=== PATIENT | male | born 1935 | race Caucasian/White ===

== ENCOUNTER 2016-09-11 13:38 | Inpatient (IN) | payer MEDICARE, OTHER ==
[~2016-09-11] VITALS: Ht 177.8 cm; Wt 91.6 kg
[~2016-09-11 13:38] MED LIST: ENOX100P SQ; LACT20SO4 PO; LANSO30 NG; LEVE500S TUBE; RIFA550 PO; WARF5 PO
[2016-09-11 13:44] VITALS: BP 145/70; PULSE 67; RESP 17; TEMP 98.2; O2SAT 98
[2016-09-11 14:04] LABS: AUTOMATED NEUTROPHIL # 4.5 TH/MM3 (1.8-7.7); BASOPHIL % 0.6 % (0.0-2.0); EOSINOPHIL # 0.1 TH/MM3 (0-0.4); EOSINOPHIL % 1.7 % (0.0-4.0); HEMATOCRIT 36.4 % (39.0-51.0); HEMO FLAGS DIFF FINAL; LYMPH % 27.4 % (9.0-44.0); MEAN CELL VOLUME 88.1 FL (80.0-100.0); MEAN CORPUSCULAR HEMOGLOBIN 29.1 PG (27.0-34.0); MEAN CORPUSCULAR HGB CONC 33.1 % (32.0-36.0); MONO % 8.1 % (0.0-8.0); NEUT % 62.2 % (16.0-70.0); PLATELET COUNT 228 TH/MM3 (150-450); RED BLOOD COUNT 4.13 MIL/MM3 (4.50-5.90); RED CELL DISTRIBUTION WIDTH 15.2 % (11.6-17.2); WHITE BLOOD COUNT 7.2 TH/MM3 (4.0-11.0)
[2016-09-11 14:21] LABS: ALT (GPT) 15 U/L (12-78); ANION GAP 6 MEQ/L (5-15); AST (GOT) 16 U/L (15-37); BICARBONATE 26.7 MEQ/L (21.0-32.0); BLOOD UREA NITROGEN 21 MG/DL (7-18); CHLORIDE 110 MEQ/L (98-107); GLOMERULAR FILTRATION RATE 57 ML/MIN (>89); POTASSIUM 4.2 MEQ/L (3.5-5.1); SODIUM (NA) 143 MEQ/L (136-145)
[2016-09-11 14:23] LABS: ALKALINE PHOSPHATASE 51 U/L (45-117); TOTAL BILIRUBIN ADULT 0.4 MG/DL (0.2-1.0)
[2016-09-11] MEDS ORDERED: LITH300C2 PO (14:23)
[2016-09-11 14:34] LABS: AMPHETAMINE, URINE NEG (NEG); BARBITURATES, URINE NEG (NEG); COCAINE, URINE NEG (NEG)
--- NOTE | 2016-09-11 14:48 | PD ---
HPI Chief Complaint: Psychiatric Symptoms Time Seen by Provider: 14:44 Travel History International Travel<30 days: No Contact w/Intl Traveler<30days: No Traveled to known affect area: No History of Present Illness HPI 79-year-old male that presents to the ED for evaluation of psychiatric illness. Patient was Catrachita acted by his facility secondary to noncompliance. Patient completely denies this. He does have a history of bipolar disorder. Apparently patient defecated on himself and wouldn't let staff take care of him so he was Domínguez acted. He does take lithium. Per Domínguez acted the believe the patient is manic. He denies this. She states been compliant with his medications. He denies any suicidal or homicidal ideation. No drugs or alcohol. No chest pain or shortness of breath. No pain of any kind. He does have a history of bipolar disorder as well as dementia per medical records. He does tell me that he is being Domínguez acted in the past. PFSH Past Medical History Autoimmune Disease: No Bipolar Disorder: Yes Anxiety: Yes Depression: No Cancer: No Cardiovascular Problems: No Diabetes: No Diminished Hearing: No Endocrine: No Genitourinary: No Immune Disorder: No Musculoskeletal: No Neurologic: No Psychiatric: Yes Reproductive: No Respiratory: No Immunizations Current: Yes Thyroid Disease: No Tetanus Vaccination: > 5 Years Past Surgical History Abdominal Surgery: No Cardiac Surgery: No Ear Surgery: No Endocrine Surgery: No Eye Surgery: No Genitourinary Surgery: No Gynecologic Surgery: No Oral Surgery: No Thoracic Surgery: No Other Surgery: Yes (back sx for mrsa) Social History Alcohol Use: Yes (OCASSIONALLY) Tobacco Use: Yes Substance Use: No Allergies-Medications (Allergen,Severity, Reaction): Coded Allergies: *MDRO Multi-Drug Resistant Organism (Verified Allergy, Severe, 09/11/16) Morphine (Verified Allergy, Severe, Anaphylaxis, 09/11/16) Reported Meds & Prescriptions Reported Meds & Active Scripts Active Reported Galva Carbonate 300 Mg Cap 300 Mg PO DAILY Review of Systems Except as stated in HPI: all other systems reviewed are Neg Physical Exam Narrative GENERAL: SKIN: Warm and dry. HEAD: Atraumatic. Normocephalic. EYES: Pupils equal and round 4 mm reactive to light and accommodation. No scleral icterus. No injection or drainage. ENT: No nasal bleeding or discharge. Mucous membranes pink and moist. Tongue is midline. No uvula deviation. NECK: Trachea midline. No JVD. CARDIOVASCULAR: Regular rate and rhythm. RESPIRATORY: No accessory muscle use. Clear to auscultation. Breath sounds equal bilaterally. GASTROINTESTINAL: Abdomen soft, non-tender, nondistended. Hepatic and splenic margins not palpable. MUSCULOSKELETAL: Extremities without clubbing, cyanosis, or edema. No obvious deformities. Full range of motion of the upper and lower extremities bilaterally. 2+ pulses bilaterally. NEUROLOGICAL: Awake and alert. No obvious cranial nerve deficits. Motor grossly within normal limits. Five out of 5 muscle strength in the arms and legs. Normal speech. PSYCHIATRIC: Appears to be appropriate mood and affect; insight and judgment normal. Data Data Last Documented VS Vital Signs Date Time Temp Pulse Resp B/P Pulse Ox O2 Delivery O2 Flow Rate FiO2 09/11/16 13:45 86 17 09/11/16 13:44 98.2 145/70 98 Orders Complete Blood Count With Diff (09/11/16 13:46) Comprehensive Metabolic Panel (09/11/16 13:46) Drug Screen, Random Urine (09/11/16 13:46) Alcohol (Ethanol) (09/11/16 13:46) Psych Screen (09/11/16 13:46) Galva (Li) (09/11/16 14:01) ^ Sitter (09/11/16 14:09) Labs Laboratory Tests Test 09/11/16 09/11/16 13:54 14:00 White Blood Count 7.2 TH/MM3 Red Blood Count 4.13 MIL/MM3 Hemoglobin 12.1 GM/DL Hematocrit 36.4 % Mean Corpuscular Volume 88.1 FL Mean Corpuscular Hemoglobin 29.1 PG Mean Corpuscular Hemoglobin 33.1 % Concent Red Cell Distribution Width 15.2 % Platelet Count 228 TH/MM3 Mean Platelet Volume 8.0 FL Neutrophils (%) (Auto) 62.2 % Lymphocytes (%) (Auto) 27.4 % Monocytes (%) (Auto) 8.1 % Eosinophils (%) (Auto) 1.7 % Basophils (%) (Auto) 0.6 % Neutrophils # (Auto) 4.5 TH/MM3 Lymphocytes # (Auto) 2.0 TH/MM3 Monocytes # (Auto) 0.6 TH/MM3 Eosinophils # (Auto) 0.1 TH/MM3 Basophils # (Auto) 0.0 TH/MM3 CBC Comment DIFF FINAL Differential Comment Sodium Level 143 MEQ/L Potassium Level 4.2 MEQ/L Chloride Level 110 MEQ/L Carbon Dioxide Level 26.7 MEQ/L Anion Gap 6 MEQ/L Blood Urea Nitrogen 21 MG/DL Creatinine 1.22 MG/DL Estimat Glomerular Filtration 57 ML/MIN Rate Random Glucose 123 MG/DL Calcium Level 8.7 MG/DL Total Bilirubin 0.4 MG/DL Aspartate Amino Transf 16 U/L (AST/SGOT) Alanine Aminotransferase 15 U/L (ALT/SGPT) Alkaline Phosphatase 51 U/L Total Protein 5.9 GM/DL Albumin 3.3 GM/DL Ethyl Alcohol Level LESS THAN 3 MG/DL Urine Opiates Screen NEG Urine Barbiturates Screen NEG Urine Amphetamines Screen NEG Urine Benzodiazepines Screen NEG Urine Cocaine Screen NEG Urine Cannabinoids Screen NEG MDM Medical Decision Making Medical Screen Exam Complete: Yes Emergency Medical Condition: Yes Medical Record Reviewed: Yes Interpretation(s) CBC & BMP Diagram 09/11/16 13:54 tox negative Differential Diagnosis Depression versus suicidal ideation versus anxiety versus adjustment disorder versus mood disorder versus bipolar disorder versus schizophrenia versus paranoid disorder versus psychosis versus substance abuse versus alcohol abuse versus alcohol induced psychosis versus homicidality addition versus cutting versus personality disorder Narrative Course 80-year-old male that presents to the ED for evaluation of psych. Patient was properly examined and was found to have signs and symptoms consistent appears to be psychiatric illness. No sign of acute medical distress. Labs will be drawn. Patient will be medically cleared. Okay to be seen by psych. Mental health screening was discussed with the patient. Diagnosis Primary Impression: Bipolar affective disorder, manic, in partial or remission Frandy Aguila Sep 11, 2016 14:48
[2016-09-11 16:34] VITALS: BP 169/77; PULSE 64; RESP 20; TEMP 92.8; O2SAT 96
[2016-09-11 18:29] VITALS: BP 176/75; PULSE 60; RESP 18; O2SAT 99
[2016-09-11] MEDS ORDERED: BENZTROPINE MESYLATE 1 MG TAB PO PRN (20:45)
[2016-09-11] MEDS ORDERED: diphenhydrAMINE HCL 50 MG CAP PO PRN (20:45)
[2016-09-11] MEDS ORDERED: ACETAMINOPHEN 325 MG TAB PO PRN (20:45)
[2016-09-11] MEDS ORDERED: LORazepam 2 MG/ML VIAL IM PRN (20:45)
[2016-09-11] MEDS ORDERED: BENZTROPINE MESYLATE 2 MG/2 ML VIAL IM PRN (20:45)
[2016-09-11] MEDS ORDERED: MAGNESIUM HYDROXIDE SUSP 30 ML CUP PO PRN (20:45)
[2016-09-11] MEDS ORDERED: ALUMINUM/MAGNESIUM/SIMETH 30 ML CUP PO PRN (20:45)
[2016-09-11 22:21] VITALS: BP 182/88; PULSE 53; RESP 20; O2SAT 99
[2016-09-12 03:04] VITALS: BP 176/84; PULSE 50; RESP 19; TEMP 90.2; O2SAT 96
[2016-09-12 06:38] VITALS: BP 184/81; PULSE 55; RESP 18; TEMP 97.8; O2SAT 97
[2016-09-12 07:40] LABS: AUTOMATED NEUTROPHIL # 3.6 TH/MM3 (1.8-7.7); BASOPHIL % 0.6 % (0.0-2.0); EOSINOPHIL # 0.1 TH/MM3 (0-0.4); EOSINOPHIL % 2.4 % (0.0-4.0); HEMATOCRIT 39.1 % (39.0-51.0); HEMO FLAGS DIFF FINAL; LYMPH % 29.7 % (9.0-44.0); LYMPHOCYTE # 1.8 TH/MM3 (1.0-4.8); MEAN CORPUSCULAR HEMOGLOBIN 29.4 PG (27.0-34.0); MEAN CORPUSCULAR HGB CONC 33.8 % (32.0-36.0); MONO % 8.5 % (0.0-8.0); NEUT % 58.8 % (16.0-70.0); PLATELET COUNT 234 TH/MM3 (150-450); RED CELL DISTRIBUTION WIDTH 15.2 % (11.6-17.2)
[2016-09-12 07:57] LABS: ANION GAP 8 MEQ/L (5-15); BICARBONATE 24.9 MEQ/L (21.0-32.0); BLOOD UREA NITROGEN 21 MG/DL (7-18); CHLORIDE 108 MEQ/L (98-107); GLOMERULAR FILTRATION RATE 64 ML/MIN (>89); HDL CHOLESTEROL 64.7 MG/DL (40.0-60.0); LDL CHOLESTEROL 51 MG/DL (0-99); POTASSIUM 4.3 MEQ/L (3.5-5.1); SODIUM (NA) 141 MEQ/L (136-145)
[2016-09-12] MEDS: REMOVE OLD PATCH T-DERMAL SCH (09:00)
[2016-09-12] MEDS: NICOTINE 21 MG/24 HR PATCH T-DERMAL SCH (09:00)
--- NOTE | 2016-09-12 10:32 | HHI.HP ---
History of Present Illness Service MEDICAL CONSULTATION Primary Care Physician Rosibel YODER M.D. Admission Diagnosis Bipolar Disorder Diagnoses: (1) History of bipolar disorder (2) Major neurocognitive disorder (3) Delirium due to another medical condition (4) Dementia (5) Dyspnea (6) Encephalopathy (7) Pain (8) Hypernatremia (9) Acute kidney failure (10) Rhabdomyolysis (11) Bipolar affective disorder, manic, in partial or remission History of Present Illness 80 Y CM. OUTPATIENT OF [facility], LIVES AT [place]. RECENTLY MOVED INTO THE [facility], NOT THE [facility]. PT HAS BEEN NONCOMPLIANT W MEDS. APPARENTLY WAS TAKING LITHIUM, UNFORTUNATELY RECENTLY HAS BEEN MANIC AND DEFECATING IN THE HALLWAYS, URINATING IN PUBLIC, GRABBING SOME OF THE RECORDS SECTION SUPERVISOR IN THE DINING ROOM. PT STARTED PUSHING SOME ELDER RESIDENTS AND POLICE WERE CALLED. THEY REFUSED TO BENNETT ACT HIM. POLICE CALLED AGAIN YESTERDAY AND PT BEHAVIORS WERE EVIDENT, AND HE AGREED TO GO TO [facility] FOR EVALUATION. PT SEEN IN PSYCH UNIT. DISCUSSED WITH DR YORK AND HIS STAFF. PT STATE HE SLEPT WELL, HE UNDERSTANDS HE IS NOT CONFUSED YET IS INTERESTED IN GETTING HELP. HE PREFERS TO OFFER NO FURTHER INFO HE IS BECOMING AGITATED. Review of Systems ROS Limitations: Clinical Condition, Altered Mental Status, Uncooperative, Poor Historian Other -14 POT ROS EXCEPT ABOVE Past Family Social History Allergies: Coded Allergies: *MDRO Multi-Drug Resistant Organism (Verified Allergy, Severe, 09/11/16) Morphine (Verified Allergy, Severe, Anaphylaxis, 09/11/16) Physical Exam Vital Signs Vital Signs Date Time Temp Pulse Resp B/P Pulse Ox O2 Delivery O2 Flow Rate FiO2 09/12/16 06:38 97.8 55 18 184/81 97 09/12/16 03:04 90.2 50 19 176/84 96 09/11/16 22:21 53 20 182/88 99 Room Air 09/11/16 18:29 60 18 176/75 99 Room Air 09/11/16 16:34 92.8 64 20 169/77 96 Room Air 09/11/16 13:45 86 17 09/11/16 13:44 98.2 67 17 145/70 98 Physical Exam GENERAL: This is a well-nourished, well-developed patient, in no apparent distress. SKIN: No rashes, ecchymoses or lesions. Cool and dry. HEAD: Atraumatic. Normocephalic. No temporal or scalp tenderness. EYES: Pupils equal round and reactive. Extraocular motions intact. No scleral icterus. No injection or drainage. ENT: Nose without bleeding, purulent drainage or septal hematoma. Throat without erythema, tonsillar hypertrophy or exudate. Uvula midline. Airway patent. NECK: Trachea midline. No JVD or lymphadenopathy. Supple, nontender, no meningeal signs. CARDIOVASCULAR: Regular rate and rhythm without murmurs, gallops, or rubs. RESPIRATORY: Clear to auscultation. Breath sounds equal bilaterally. No wheezes , rales, or rhonchi. GASTROINTESTINAL: Abdomen soft, non-tender, nondistended. No hepato-splenomegaly , or palpable masses. No guarding. MUSCULOSKELETAL: Extremities without clubbing, cyanosis, or edema. No joint tenderness, effusion, or edema noted. No calf tenderness. Negative Homans sign bilaterally. NEUROLOGICAL: Awake and alert. Cranial nerves II through XII intact. Motor and sensory grossly within normal limits. Five out of 5 muscle strength in all muscle groups. Normal speech. Laboratory Laboratory Tests Test 09/11/16 09/11/16 09/11/16 09/12/16 13:54 14:00 19:17 06:18 White Blood Count 7.2 6.0 Red Blood Count 4.13 4.50 Hemoglobin 12.1 13.2 Hematocrit 36.4 39.1 Mean Corpuscular Volume 88.1 87.0 Mean Corpuscular Hemoglobin 29.1 29.4 Mean Corpuscular Hemoglobin 33.1 33.8 Concent Red Cell Distribution Width 15.2 15.2 Platelet Count 228 234 Mean Platelet Volume 8.0 8.3 Neutrophils (%) (Auto) 62.2 58.8 Lymphocytes (%) (Auto) 27.4 29.7 Monocytes (%) (Auto) 8.1 8.5 Eosinophils (%) (Auto) 1.7 2.4 Basophils (%) (Auto) 0.6 0.6 Neutrophils # (Auto) 4.5 3.6 Lymphocytes # (Auto) 2.0 1.8 Monocytes # (Auto) 0.6 0.5 Eosinophils # (Auto) 0.1 0.1 Basophils # (Auto) 0.0 0.0 CBC Comment DIFF FINAL DIFF FINAL Differential Comment Sodium Level 143 141 Potassium Level 4.2 4.3 Chloride Level 110 108 Carbon Dioxide Level 26.7 24.9 Anion Gap 6 8 Blood Urea Nitrogen 21 21 Creatinine 1.22 1.11 Estimat Glomerular Filtration 57 64 Rate Random Glucose 123 80 Calcium Level 8.7 8.9 Total Bilirubin 0.4 Aspartate Amino Transf 16 (AST/SGOT) Alanine Aminotransferase 15 (ALT/SGPT) Alkaline Phosphatase 51 Total Protein 5.9 Albumin 3.3 Ethyl Alcohol Level LESS THAN 3 Urine Opiates Screen NEG Urine Barbiturates Screen NEG Urine Amphetamines Screen NEG Urine Benzodiazepines Screen NEG Urine Cocaine Screen NEG Urine Cannabinoids Screen NEG Saunemin Level LESS THAN 0.1 Triglycerides Level 77 Cholesterol Level 131 LDL Cholesterol 51 HDL Cholesterol 64.7 Cholesterol/HDL Ratio 2.02 Result Diagram: 09/12/1661709/12/16617 Assessment and Plan Assessment and Plan DECOMPENSATED BIPOLAR URGENT HTN RI HYPERGLYCEMIA PLAN: START LISINOPRIL. PSYCH MEDS PER PSYCHIATRY. A1C BMP ONE WEEK WILL FOLLOW CLOSELY PT MEDICAL PROBLEMS. Jj Yoder MD Sep 12, 2016 10:32
[2016-09-12] MEDS ORDERED: ALUMINUM/MAGNESIUM/SIMETH 30 ML CUP PO PRN (11:00)
[2016-09-12] MEDS ORDERED: MAGNESIUM HYDROXIDE SUSP 30 ML CUP PO PRN (11:00)
--- NOTE | 2016-09-12 11:30 | HHI.HP ---
Provisional Diagnosis Admission Date Sep 11, 2016 at 20:38 [place] I. Bipolar 1 disorder most recent episode karri moderate f 31.12 Certification of Person's Competence To Provide Express and Informed Consent I have personally examined Malvin Sahu , a person being served at [facility] on, Sep 12, 2016 10:59. Express and informed consent means consent voluntarily given in writing, by a competent person, after sufficient explanation and disclosure of the subject matter involved to enable the person to make a knowing and willful decision without any element of force, fraud, deceit, duress, or other form of constraint or coercion. This person is 18 years of age or older, is not now known to be incompetent to consent to treatment with a guardian advocate, and does not have a health care surrogate or proxy currently making medical treatment decisions. I have found this person to be one of the following: [] Competent to provide express and informed consent, as defined above, for voluntary admission to this facility and is competent to provide express and informed consent for treatment. He/she has the consistent capacity to make well reasoned, willful, and knowing decisions concerning his or her medical or mental health treatment. The person fully and consistently understands the purpose of the admission for examination/placement and is fully capable of personally exercising all rights assured [place] [] Incompetent to provide express and informed consent to voluntary admission, and this is incompetent to provide express and informed consent to treatment. The person must be transferred to involuntary status and a petition for a guardian advocate filed with the Circuit Court. [x] Refusing to provide express and informed consent to voluntary admission but is competent to provide express and informed consent for treatment. The person must be discharged or transferred to involuntary status. Form shall be completed within 24 hours of a person's arrival at the receiving facility and filed in the clinical record of each person: 1. Admitted on a voluntary basis 2. Permitted to provide express and informed consent to his/her own treatment 3. Allowed to transfer from involuntary to voluntary status 4. Prior to permitting a person to consent to his or her own treatment after having been previously found incompetent to consent to treatment. History of Present Illness Capacity: Has Capacity (patient has capacity to participate in treatment) HPI Patient is a 80-year-old white male comes here under Domínguez act by the [place] [employer] dated 09/11/16 at 1251. stating Mr. Fields is currently living at [facility] in the independent living facility. He has not been taking his medications for the past couple of months. Mrs. Fields defecated on himself and refuses to shower. Mr. Fields was defecating in the shower and also the lunchroom area. Mrs. Madrigal is in a manic state according to staff member. Staff member believes that he is poor processing dodging Dr. Jeong appointments. Mr. Fields advised that he is not hospital and has been taking his medication. She Donnie son came to location after called by staff members and noted that his father was not in his right frame of mind and feeling that this type of behavior is because he is not probably taking his medication. Patient seen screened in the ED urine toxicology negative blood alcohol level negative, lithium level less than 0.1. Patient seen in his room with nurse Mayo present throughout session. Patient is a tall heavyset white male laying calmly in his bed. He is oriented to person place time and situation. He does acknowledge being bipolar. Does somewhat reluctantly acknowledge being somewhat "manic" he acknowledges prior manic states with elevated mood racing thoughts increased energy decreased need for sleep with poor behavior and impulsive behavior. At this time remains somewhat grandiose stating he continues to be employed for living and travels for living. He does deny alcohol or drugs related to this he denies any voices or visions with this of present entitlement grandiosity related to this. He does acknowledge prior hospitalization with this. Review of our EMR shows a hospitalization on through 09/20/14 visited [id number] with diagnosis psychosis, also visit through 10/23/14 diagnoses bipolar disorder [id number]. We did discuss medications it appears he has been on lithium in the past though none recently I've also talked with Dr. Jeong was his medical doctor at the facility states there is some concern with his family related to that medicine. The patient is and has 3 adult children 1 son who lives local. Denies any physical or sexual abuse states minimal alcohol abuse and denies other drug use. Also denies any mental health issues with his family of origin. States he has a bachelor's degree from [employer] and some advanced courses also. At this time the patient does meet criteria for involuntary psychiatric hospitalization on the Domínguez act I'll do first opinion requests second opinion. I feel the does have capacity to participate vagueness treatment. Will have as mentioned Dr. Jeong follow-up with him the started him on Seroquel 25 mg 3 times a day and and fight patient's son to the treatment team meeting on Thursday , 09/15/16 Review of Systems Constitutional: DENIES: Diaphoretic episodes, Fatigue, Fever, Weight gain, Weight loss, Chills, Dizziness, Change in appetite, Night Sweats Endocrine: DENIES: Heat/cold intolerance, Polydipsia, Polyuria, Polyphagia Eyes: DENIES: Blurred vision, Diplopia, Eye inflammation, Eye pain, Vision loss , Photosensitivity, Double Vision Ears, nose, mouth, throat: DENIES: Tinnitus, Hearing loss, Vertigo, Nasal discharge, Oral lesions, Throat pain, Hoarseness, Ear Pain, Running Nose, Epistaxis, Sinus Pain, Toothache, Odynophagia Respiratory: DENIES: Apneas, Cough, Snoring, Wheezing, Hemoptysis, Sputum production, Shortness of breath Cardiovascular: DENIES: Chest pain, Palpitations, Syncope, Dyspnea on Exertion , PND, Lower Extremity Edema, Orthopnea, Claudication Gastrointestinal: DENIES: Abdominal pain, Black stools, Bloody stools, Constipation, Diarrhea, Nausea, Vomiting, Difficulty Swallowing, Anorexia Genitourinary: DENIES: Sexual dysfunction, Urinary frequency, Urinary incontinence, Urgency, Hematuria, Dysuria, Nocturia, Penile Discharge, Testicular Pain, Testicular Swelling Musculoskeletal: DENIES: Joint pain, Muscle aches, Stiffness, Joint Swelling, Back pain, Neck pain Integumentary: DENIES: Abnormal pigmentation, Nail changes, Pruritus, Rash Hematologic/lymphatic: DENIES: Bruising, Lymphadenopathy Immunologic/allergic: DENIES: Eczema, Urticaria Neurologic: DENIES: Abnormal gait, Headache, Localized weakness, Paresthesias, Seizures, Speech Problems, Tremor, Poor Balance Psychiatric: COMPLAINS OF: Mood changes, Agitation (pressured speech) Past Psych History Psychological trauma history Denies physical or sexual abuse Violence risk - others (6 mos) Patient has been somewhat aggressive at his residence Violence risk - self (6 mos) Low Substance Abuse History Drugs/Alcohol past 12 months States a rare beer Past Family Social History Coded Allergies: *MDRO Multi-Drug Resistant Organism (Verified Allergy, Severe, 09/11/16) Morphine (Verified Allergy, Severe, Anaphylaxis, 09/11/16) Past Medical History Patient medically cleared ED please see Dr. Jeong assessment Reported Medications [place] Carbonate 300 Mg [id number] Mg PO DAILY Ref 0 09/11/16 Current Medications Medications (Trade) Dose Ordered Sig/Ivon Route Start Time Stop Time Status Last Admin (Ativan) 0.5 mg Q12H PRN PO 09/11/16 20:45 (Ativan Inj) 0.5 mg Q12H PRN IM 09/11/16 20:45 (Benadryl) 50 mg HS PRN PO 09/11/16 20:45 (Tylenol) 650 mg Q4H PRN PO 09/11/16 20:45 (Milk Of Magnesia Liq) 30 ml DAILY PRN PO 09/11/16 20:45 (Mag-Al Plus Susp Liq) 30 ml Q6H PRN PO 09/11/16 20:45 (Habitrol 21 Mg Patch.24 Hr) 1 patch DAILY T-DERMAL 09/12/16 09:00 (Cogentin) 1 mg Q12H PRN PO 09/11/16 20:45 (Cogentin Inj) 1 mg Q12H PRN IM 09/11/16 20:45 Miscellaneous Information 1 DAILY T-DERMAL 09/12/16 09:00 (Prinivil) 20 mg DAILY PO 09/12/16 11:00 (Benadryl) 50 mg HS PRN PO 09/12/16 11:00 UNV (Tylenol) 650 mg Q4H PRN PO 09/12/16 11:00 UNV (Milk Of Magnesia Liq) 30 ml DAILY PRN PO 09/12/16 11:00 UNV (Mag-Al Plus Susp Liq) 30 ml Q6H PRN PO 09/12/16 11:00 UNV (SEROquel) 25 mg TID PO 09/12/16 13:00 UNV Family History Patient will be has 3 adult children 2 boys and one girl one son lives locally to mental illness Social History Patient lives in senior care facility Patient's Strengths (min. 2) Patient verbal cooperative able to access health care Physical Exam Patient screened in ED exam reviewed and agreed with vital signs blood pressure 189/81 pulse 55 respirations 18 Vital Signs Vital Signs Date Time Temp Pulse Resp B/P Pulse Ox O2 Delivery O2 Flow Rate FiO2 09/12/16 06:38 97.8 55 18 184/81 97 09/11/16 22:21 Room Air Mental Status Examination Alert oriented heavyset tall white male appears stated age laying quietly on his bed in his room nurse Mayo present throughout session, patient is calm cooperative though also with somewhat pressured speech at times the volume increases to almost shout, he is somewhat tangential. He is otherwise normal active specific show some mild increase range and intensity there are no auditory or visual hallucinations. No delusions. Though there is some mild grandiosity and 7 judgment is poor cognition appears grossly intact Appearance Clean the Speech: Pressured Orientation: x3 Memory: Unremarkable Thought Process: Logical Thought Content: Unremarkable (mildly grandiose) Language Fair Fund of Knowledge Fair Hallucination Type: None Attention and Concentration: Other (fair) Suicidal Ideation: No Previous Suicide Attempts: No Homicidal Ideation: No Previous Homicide Attempts: No Insight: Poor Judgement: Poor Affect: Other (slight increase range and intensity) Mood: Euthymic, Manic (mildly) Motor Activity: Normal gait Assessment & Plan Problem List: (1) Bipolar I disorder, most recent episode manic, moderate ICD Code: F31.12 Assessment & Plan Estimated LOS 3-5: days patient is manic grandiose though little signs of psychosis. Will request family members to meet with me at my treatment team on 09/15. We'll start patient on Seroquel 25 mg 3 times a day Discharge Planning To be determined probable return to his place of residence Request HC Surrog/Guard Advoc?: No Deandre Lui MD Sep 12, 2016 11:30
[2016-09-12] MEDS: QUEtiapine FUMARATE 25 MG TAB PO SCH ×2 (12:15→18:12)
[2016-09-12] MEDS: LISINOPRIL 20 MG TAB PO SCH (12:15)
[2016-09-12 13:07] LABS: HEMOGLOBIN A1a 0.7 %; HEMOGLOBIN A1b 1.5 %; HEMOGLOBIN Ao 86.2 %; HEMOGLOBIN P3 5.2 %
[2016-09-12 19:08] VITALS: BP 159/70; PULSE 55; RESP 18; TEMP 97.6; O2SAT 97
[2016-09-13] MEDS: diphenhydrAMINE HCL 50 MG CAP PO PRN (00:41)
[2016-09-13] MEDS: LORazepam 0.5 MG TAB PO PRN (00:41)
[2016-09-13] MEDS: ACETAMINOPHEN 325 MG TAB PO PRN ×2 (00:44→07:08)
[2016-09-13 05:43] VITALS: BP 135/75; PULSE 43; RESP 16; TEMP 98.2; O2SAT 98
[2016-09-13 05:45] VITALS: BP 131/95; PULSE 49; RESP 16; TEMP 99.2; O2SAT 98
[2016-09-13] MEDS: QUEtiapine FUMARATE 25 MG TAB PO SCH ×3 (08:55→18:11)
[2016-09-13] MEDS: REMOVE OLD PATCH T-DERMAL SCH (09:00)
[2016-09-13] MEDS: NICOTINE 21 MG/24 HR PATCH T-DERMAL SCH (09:00)
[2016-09-13] MEDS: LISINOPRIL 20 MG TAB PO SCH (09:00)
--- NOTE | 2016-09-13 12:47 | HHI.PYPN ---
Subjective Remarks This is a second opinion from for Dr. Lui. Patient was seen and case discussed with nursing. Patient's admission criteria include: "MANIC AND DEFECATING IN THE HALLWAYS, URINATING IN PUBLIC, GRABBING SOME OF THE DENTAL CERAMIST HELPER IN THE DINING ROOM. PT STARTED PUSHING SOME ELDER RESIDENTS AND POLICE WERE CALLED" patient was asked about his behavior and he does not recall any of the and does not know why he is here in the hospital. Unclear if he has poor insight or minimizing his behavior. Here in the hospital, he has been sleeping well and has not been aggressive or defecating in public places. Denies auditory visual hallucinations. Compliant with medications Objective Alert: Yes Andreas: Person, Place, Date Mood: Calm Affect: Restricted Memory Intact: Immediate (impaired) Hallucinations: Other Delusions: No Delusion Type: Other Suicidal: Ideation (denies) Homicidal: Ideation (denies) Insight/Judgement Poor Vitals/IOs Vital Signs Date Time Temp Pulse Resp B/P Pulse Ox O2 Delivery O2 Flow Rate FiO2 09/13/16 05:45 99.2 49 16 131/95 98 09/11/16 22:21 Room Air Intake and Output 09/12/16 09/12/16 09/13/16 08:00 16:00 00:00 Intake Total 360 ml 720 ml Balance 360 ml 720 ml Assessment & Plan Problem List: (1) Bipolar I disorder, most recent episode manic, moderate ICD Code: F31.12 Assessment & Plan I agree with the first opinion to continue petition. Criteria include: Bizarre behavior and combativeness Justification for Cont. Inpt. Patient would decompensate in a less restrictive setting Request HC Surrog/Guard Advoc?: No Ambrosio Hendrix DO Sep 13, 2016 12:46
--- NOTE | 2016-09-13 13:11 | HHI.PR ---
Subjective Remarks Patient seen with Dr. Soares covering for Dr. Jeong. Follow-up hypertension, hyperglycemia. Blood pressure improved, hemoglobin A1c 5.1 Patient resting in bed offers no medical complaints. Patient asking many will be discharged home. Patient denies chest pain short of breath nausea vomiting diarrhea constipation fevers or chills. MAXIMUM TEMPERATURE 99.2 Objective Vitals Vital Signs Date Time Temp Pulse Resp B/P Pulse Ox O2 Delivery O2 Flow Rate FiO2 09/13/16 05:45 99.2 49 16 131/95 98 09/13/16 05:43 98.2 43 16 135/75 98 09/12/16 19:08 97.6 55 18 159/70 97 I/O 09/12/16 09/12/16 09/12/16 09/13/16 09/13/16 09/13/16 07:00 15:00 23:00 07:00 15:00 23:00 Intake Total 360 ml 720 ml Balance 360 ml 720 ml Intake Oral 360 ml 720 ml # Voids 2 2 2 Result Diagram: 09/12/1661709/12/16617 Objective Remarks GENERAL: This is a well-nourished, well-developed patient, in no apparent distress. CARDIOVASCULAR: Regular rate and rhythm without murmurs, gallops, or rubs. RESPIRATORY: Clear to auscultation. Breath sounds equal bilaterally. No wheezes , rales, or rhonchi. GASTROINTESTINAL: Abdomen soft, non-tender, nondistended. Normal active bowel sounds MUSCULOSKELETAL: Extremities without clubbing, cyanosis, or edema. NEURO: Awake and alert. Moves all ext x4 A/P Assessment and Plan This a 80 all male patient known to Dr. Jeong seen by Dr. Soares who is covering. Patient currently an inpatient psychiatric center medicine team is consulted for assistance in medical management. Bipolar- management per psychiatric team Hypertensive urgency- improved continue lisinopril Hyperglycemia- A1c 5.1, does not appear to be diabetes DVT prophylaxis patient ambulatory Plan of care discussed with patient and RN Written by Maddie Vazquez, acting as scribe for Dr. Soares on 09/13/16 at 13 :10. The documentation accurately reflects the work performed [id number] by me on at 1310. Maddie Vazquez Sep 13, 2016 1:11 pm Georgie Soares DO Sep 13, 2016 2:08 pm
[2016-09-13 20:04] VITALS: BP 126/69; PULSE 61; RESP 18; TEMP 96.7; O2SAT 99
[2016-09-14 06:18] VITALS: BP 148/65; PULSE 54; TEMP 97.7; O2SAT 96
[2016-09-14] MEDS: QUEtiapine FUMARATE 25 MG TAB PO SCH ×3 (08:59→17:46)
[2016-09-14] MEDS: LISINOPRIL 20 MG TAB PO SCH (08:59)
[2016-09-14] MEDS: NICOTINE 21 MG/24 HR PATCH T-DERMAL SCH (09:00)
[2016-09-14] MEDS: REMOVE OLD PATCH T-DERMAL SCH (09:00)
--- NOTE | 2016-09-14 12:31 | HHI.PYPN ---
Subjective Remarks Patient was seen and case discussed with nursing. Patient is pleasant and cooperative with exam. He is out of his room and socializing with others. Says he hasn't had any visitors and phone calls. There is no evidence of bizarre or inappropriate behavior. His compliant with his medications. Alert and oriented 3. Continues to have poor insight into admission Objective Alert: Yes [place]: Person, Place, Date Mood: Calm Affect: Restricted Memory Intact: Immediate (impaired) Hallucinations: Other Delusions: No Delusion Type: Other Suicidal: Ideation (denies) Homicidal: Ideation (denies) Insight/Judgement Poor Vitals/IOs Vital Signs Date Time Temp Pulse Resp B/P Pulse Ox O2 Delivery O2 Flow Rate FiO2 09/14/16 06:18 97.7 54 148/65 96 09/13/16 20:04 18 09/11/16 22:21 Room Air Intake and Output 09/13/16 09/13/16 09/14/16 08:00 16:00 00:00 Intake Total 1680 ml Balance 1680 ml Assessment & Plan Problem List: (1) Bipolar I disorder, most recent episode manic, moderate ICD Code: F31.12 Assessment & Plan Continue current treatment plan Justification for Cont. Inpt. Patient will decompensate outside of a less restrictive setting Request HC Surrog/Guard Advoc?: No Ambrosio Hendrix DO Sep 14, 2016 12:31
[2016-09-14] MEDS: ACETAMINOPHEN 325 MG TAB PO PRN (17:49)
[2016-09-14 19:44] VITALS: BP 133/70; PULSE 60; RESP 18; TEMP 97.4; O2SAT 99
[2016-09-15 05:31] VITALS: BP 127/66; PULSE 60; RESP 18; TEMP 96.5; O2SAT 100
[2016-09-15] MEDS: NICOTINE 21 MG/24 HR PATCH T-DERMAL SCH (09:00)
[2016-09-15] MEDS: QUEtiapine FUMARATE 25 MG TAB PO SCH ×3 (09:00→17:16)
[2016-09-15] MEDS: LISINOPRIL 20 MG TAB PO SCH (09:00)
[2016-09-15] MEDS: REMOVE OLD PATCH T-DERMAL SCH (09:00)
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
[2016-09-15 19:40] VITALS: BP 113/59; PULSE 71; RESP 18; TEMP 98.6; O2SAT 99
[2016-09-16 05:31] VITALS: BP 128/62; PULSE 59; RESP 15; TEMP 97.4; O2SAT 96
[2016-09-16 08:01] LABS: BICARBONATE 22.6 MEQ/L (21.0-32.0); POTASSIUM 4.6 MEQ/L (3.5-5.1)
[2016-09-16] MEDS: REMOVE OLD PATCH T-DERMAL SCH (09:00)
[2016-09-16] MEDS: QUEtiapine FUMARATE 25 MG TAB PO SCH ×3 (09:00→17:58)
[2016-09-16] MEDS: LISINOPRIL 20 MG TAB PO SCH (09:00)
[2016-09-16] MEDS: NICOTINE 21 MG/24 HR PATCH T-DERMAL SCH (09:00)
[2016-09-16] MEDS: ACETAMINOPHEN 325 MG TAB PO PRN ×2 (09:39→21:00)
--- NOTE | 2016-09-16 11:48 | HHI.PYPN ---
Subjective Remarks Patient is seen in his room with nurse Viri, patient calm cooperative states the medicine is calming him quite a bit, he denies suicidality homicidality voices or visions. Remains somewhat vague about placement after discharge for now continue treatment Review of Systems Except as stated in HPI: all other systems reviewed are Neg Objective Alert: Yes [place]: Person, Place, Date Mood: Calm Affect: Restricted Memory Intact: Immediate (impaired) Hallucinations: Other Delusions: No Delusion Type: Other Suicidal: Ideation (denies) Homicidal: Ideation (denies) Insight/Judgement Poor Labs Test 09/16/16 07:04 Sodium Level 141 MEQ/L Potassium Level 4.6 MEQ/L Chloride Level 107 MEQ/L Carbon Dioxide Level 22.6 MEQ/L Anion Gap 11 MEQ/L Blood Urea Nitrogen 41 MG/DL Creatinine 1.17 MG/DL Estimat Glomerular Filtration 60 ML/MIN Rate Random Glucose 97 MG/DL Calcium Level 9.2 MG/DL Vitals/IOs Vital Signs Date Time Temp Pulse Resp B/P Pulse Ox O2 Delivery O2 Flow Rate FiO2 09/16/16 05:31 97.4 59 15 128/62 96 Intake and Output 09/15/16 09/15/16 09/16/16 08:00 16:00 00:00 Intake Total 0 ml 960 ml 720 ml Balance 0 ml 960 ml 720 ml Assessment & Plan Problem List: (1) Bipolar I disorder, most recent episode manic, moderate ICD Code: F31.12 Assessment & Plan Estimated LOS: days patient's karri is slowly resolving his calm cooperative compliant with medications Justification for Cont. Inpt. At this time patient will decompensate if placed in the lower level of care Discharge Planning To be determined Request HC Surrog/Guard Advoc?: Deandre Chen MD Sep 16, 2016 11:48
[2016-09-16 19:00] VITALS: BP 120/58; PULSE 59; RESP 15; TEMP 98.1; O2SAT 96
[2016-09-16] MEDS: LORazepam 0.5 MG TAB PO PRN (21:00)
[2016-09-16] MEDS: diphenhydrAMINE HCL 50 MG CAP PO PRN (21:00)
[2016-09-17 06:18] VITALS: BP 153/72; PULSE 52; RESP 17; TEMP 97.4; O2SAT 98
[2016-09-17] MEDS: REMOVE OLD PATCH T-DERMAL SCH (09:00)
[2016-09-17] MEDS: NICOTINE 21 MG/24 HR PATCH T-DERMAL SCH (09:00)
[2016-09-17] MEDS: QUEtiapine FUMARATE 25 MG TAB PO SCH ×3 (09:34→18:25)
[2016-09-17] MEDS: LISINOPRIL 20 MG TAB PO SCH (09:34)
--- NOTE | 2016-09-17 14:31 | HHI.PYPN ---
Subjective Remarks Patient seen in day room with nurse Mihaela. Attempted to explain [employer] proceeding to him patient became somewhat irritable allow little insight, when I shared with him the fact that his son will be appearing in [employer] court he said that I was lying and That his son lives in [place] and is now in her's [place]. There was some thought of my part to allow the patient to sign voluntary, but his behaviors during the session dispelled those thoughts. I did explain to the patient that he will be able to discuss the maintenance person his physician about further stay here at [facility] Review of Systems Except as stated in HPI: all other systems reviewed are Neg Objective Alert: Yes [place]: Person, Place, Date Mood: Calm Affect: Restricted Memory Intact: Immediate (impaired) Hallucinations: Other Delusions: No Delusion Type: Other Suicidal: Ideation (denies) Homicidal: Ideation (denies) Insight/Judgement Poor Vitals/IOs Vital Signs Date Time Temp Pulse Resp B/P Pulse Ox O2 Delivery O2 Flow Rate FiO2 09/17/16 06:18 97.4 52 17 153/72 98 Intake and Output 09/16/16 09/16/16 09/17/16 08:00 16:00 00:00 Intake Total 480 ml 840 ml 720 ml Balance 480 ml 840 ml 720 ml Assessment & Plan Problem List: (1) Bipolar I disorder, most recent episode manic, moderate ICD Code: F31.12 Assessment & Plan Estimated LOS: days patient continues manic though softening, but also with very little insight into his disease need for further stabilization. Patient scheduled for [employer] court tomorrow Justification for Cont. Inpt. At this time patient would significantly decompensate with placed in the lower level of care Discharge Planning To be determined Request HC Surrog/Guard Advoc?: No Deandre Lui MD Sep 17, 2016 14:31
[2016-09-17 19:13] VITALS: BP 120/56; PULSE 65; RESP 16; TEMP 97.9; O2SAT 98
[2016-09-18 05:35] VITALS: BP 118/57; PULSE 58; RESP 16; TEMP 97.7
[2016-09-18] MEDS: QUEtiapine FUMARATE 25 MG TAB PO SCH ×3 (08:13→18:26)
[2016-09-18] MEDS: LISINOPRIL 20 MG TAB PO SCH (08:13)
[2016-09-18] MEDS: NICOTINE 21 MG/24 HR PATCH T-DERMAL SCH (09:00)
[2016-09-18] MEDS: REMOVE OLD PATCH T-DERMAL SCH (09:00)
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
[2016-09-18 18:38] VITALS: BP 118/67; PULSE 65; RESP 17; TEMP 98; O2SAT 96
[2016-09-19 05:06] VITALS: BP 122/56; PULSE 64; RESP 18; TEMP 97.7
[2016-09-19] MEDS: REMOVE OLD PATCH T-DERMAL SCH (09:00)
[2016-09-19] MEDS: NICOTINE 21 MG/24 HR PATCH T-DERMAL SCH (09:00)
[2016-09-19] MEDS: QUEtiapine FUMARATE 25 MG TAB PO SCH ×2 (09:14→21:08)
[2016-09-19] MEDS: LISINOPRIL 20 MG TAB PO SCH (09:14)
[2016-09-19] MEDS: ACETAMINOPHEN 325 MG TAB PO PRN (09:21)
--- NOTE | 2016-09-19 12:31 | HHI.PYPN ---
Subjective Remarks Patient seen in day room before staff, chart review, patient showed no significant behavior problems overnight though he is somewhat guarded with me today perhaps still somewhat angry about come of the [place] [address] hearing. For now will increase Seroquel from 25 mg 3 times a day to 50 mg twice a day. Continue to observe over weekend will still keep the possibility of changing medication to Abilify Review of Systems Except as stated in HPI: all other systems reviewed are Neg Objective Alert: Yes [place]: Person, Place, Date Mood: Calm Affect: Restricted Memory Intact: Immediate (impaired) Hallucinations: Other Delusions: No Delusion Type: Other Suicidal: Ideation (denies) Homicidal: Ideation (denies) Insight/Judgement Poor Vitals/IOs Vital Signs Date Time Temp Pulse Resp B/P Pulse Ox O2 Delivery O2 Flow Rate FiO2 09/19/16 05:06 97.7 64 18 122/56 09/18/16 18:38 96 Intake and Output 09/18/16 09/18/16 09/19/16 08:00 16:00 00:00 Intake Total 240 ml 240 ml 1320 ml Balance 240 ml 240 ml 1320 ml Assessment & Plan Problem List: (1) Bipolar I disorder, most recent episode manic, moderate ICD Code: F31.12 Assessment & Plan Estimated LOS: days patient continues intense overall calm but appears somewhat suspicious with me. See medication adjustments above Justification for Cont. Inpt. This time patient would decompensate if placed in a lower level of care Discharge Planning To be determined Request HC Surrog/Guard Advoc?: No Deandre Lui MD Sep 19, 2016 12:31
[2016-09-19 19:28] VITALS: BP 119/59; PULSE 62; RESP 17; TEMP 98.1; O2SAT 97
[2016-09-20 05:55] VITALS: BP 119/60; PULSE 55; RESP 16; TEMP 98.1; O2SAT 97
[2016-09-20] MEDS: LISINOPRIL 20 MG TAB PO SCH (08:58)
[2016-09-20] MEDS: QUEtiapine FUMARATE 25 MG TAB PO SCH ×2 (08:58→21:08)
[2016-09-20] MEDS: NICOTINE 21 MG/24 HR PATCH T-DERMAL SCH (08:59)
[2016-09-20] MEDS: REMOVE OLD PATCH T-DERMAL SCH (08:59)
--- NOTE | 2016-09-20 15:13 | HHI.PYPN ---
Subjective Remarks Pt seen and discussed with staff. He has been compliant with medications and denies side effects. He reports that mood is good and he has not been angry or aggression. No SI/HI. Objective Alert: Yes [place]: Person, Place, Date Mood: Calm Affect: Restricted Memory Intact: Comment (impaired) Hallucinations: Other Delusions: No Delusion Type: Other (none) Suicidal: Ideation (denies) Homicidal: Ideation (denies) Insight/Judgement poor Vitals/IOs Vital Signs Date Time Temp Pulse Resp B/P Pulse Ox O2 Delivery O2 Flow Rate FiO2 09/20/16 05:55 98.1 55 16 119/60 97 Intake and Output 09/19/16 09/19/16 09/20/16 08:00 16:00 00:00 Intake Total 2160 ml 1200 ml Balance 2160 ml 1200 ml Assessment & Plan Problem List: (1) Bipolar I disorder, most recent episode manic, moderate ICD Code: F31.12 Assessment & Plan Continue current tx plan. Estimated LOS: days Justification for Cont. Inpt. risk of decompensation Request HC Surrog/Guard Advoc?: Felicita Morrison MD Sep 20, 2016 15:13
[2016-09-20 19:00] VITALS: BP 121/58; PULSE 64; RESP 16; TEMP 97.8; O2SAT 94
[2016-09-21 05:06] VITALS: BP 116/58; PULSE 57; RESP 18; TEMP 97.9; O2SAT 98
[2016-09-21] MEDS: QUEtiapine FUMARATE 25 MG TAB PO SCH ×2 (08:45→21:00)
[2016-09-21] MEDS: LISINOPRIL 20 MG TAB PO SCH (08:45)
[2016-09-21] MEDS: NICOTINE 21 MG/24 HR PATCH T-DERMAL SCH (08:45)
[2016-09-21] MEDS: REMOVE OLD PATCH T-DERMAL SCH (08:45)
[2016-09-21] MEDS: ACETAMINOPHEN 325 MG TAB PO PRN (12:44)
--- NOTE | 2016-09-21 15:39 | HHI.PYPN ---
Subjective Remarks Pt seen and discussed with staff. He has been calm and cooperative with care. No disruptive behavior. Compliant with medications and denies SI/HI. Objective Alert: Yes [place]: Person, Place, Date Mood: Calm Affect: Restricted Memory Intact: Comment (impaired) Hallucinations: Other Delusions: No Delusion Type: Other (none) Suicidal: Ideation (denies) Homicidal: Ideation (denies) Insight/Judgement fair Vitals/IOs Vital Signs Date Time Temp Pulse Resp B/P Pulse Ox O2 Delivery O2 Flow Rate FiO2 09/21/16 05:06 97.9 57 18 116/58 98 Intake and Output 09/20/16 09/20/16 09/21/16 08:00 16:00 00:00 Intake Total 480 ml 960 ml 480 ml Balance 480 ml 960 ml 480 ml Assessment & Plan Problem List: (1) Bipolar I disorder, most recent episode manic, moderate ICD Code: F31.12 Assessment & Plan Continue current tx plan. Estimated LOS: days Justification for Cont. Inpt. risk of decompensation Request HC Surrog/Guard Advoc?: Felicita Morrison MD Sep 21, 2016 15:39
[2016-09-21 19:29] VITALS: BP 130/62; PULSE 59; RESP 16; TEMP 98.7
[2016-09-22 05:12] VITALS: BP 140/83; PULSE 60; RESP 18; TEMP 97.2; O2SAT 98
[2016-09-22] MEDS: REMOVE OLD PATCH T-DERMAL SCH (09:00)
[2016-09-22] MEDS: NICOTINE 21 MG/24 HR PATCH T-DERMAL SCH (09:00)
[2016-09-22] MEDS: LISINOPRIL 20 MG TAB PO SCH (09:14)
[2016-09-22] MEDS: QUEtiapine FUMARATE 25 MG TAB PO SCH ×2 (09:14→20:55)
--- NOTE | 2016-09-22 12:13 | HHI.FPPN ---
Subjective Remarks CALM BECOMES LABILE D/W RN Objective Vitals Vital Signs Date Time Temp Pulse Resp B/P Pulse Ox O2 Delivery O2 Flow Rate FiO2 09/22/16 05:12 97.2 60 18 140/83 98 09/21/16 19:29 98.7 59 16 130/62 I/O 09/21/16 09/21/16 09/21/16 09/22/16 09/22/16 09/22/16 07:00 15:00 23:00 07:00 15:00 23:00 Intake Total 0 ml 480 ml 1440 ml Balance 0 ml 480 ml 1440 ml Intake Oral 0 ml 480 ml 960 ml Oral Supplement 480 ml # Voids 2 5 3 Objective Remarks GENERAL: SKIN: Warm and dry. HEAD: Atraumatic. Normocephalic. EYES: Pupils equal and round. No scleral icterus. No injection or drainage. ENT: No nasal bleeding or discharge. Mucous membranes pink and moist. NECK: Trachea midline. No JVD. CARDIOVASCULAR: Regular rate and rhythm. RESPIRATORY: No accessory muscle use. Clear to auscultation. Breath sounds equal bilaterally. GASTROINTESTINAL: Abdomen soft, non-tender, nondistended. Hepatic and splenic margins not palpable. MUSCULOSKELETAL: Extremities without clubbing, cyanosis, or edema. No obvious deformities. NEUROLOGICAL: Awake and alert. No obvious cranial nerve deficits. Motor grossly within normal limits. Five out of 5 muscle strength in the arms and legs. Normal speech. PSYCHIATRIC: Appropriate mood and affect; insight and judgment normal. Medications and IVs Current Medications Medications (Trade) Dose Ordered Sig/Ivon Route Start Time Stop Time Status Last Admin (Ativan) 0.5 mg Q12H PRN PO 09/11/16 20:45 09/16/16 21:00 (Ativan Inj) 0.5 mg Q12H PRN IM 09/11/16 20:45 (Habitrol 21 Mg Patch.24 Hr) 1 patch DAILY T-DERMAL 09/12/16 09:00 (Cogentin) 1 mg Q12H PRN PO 09/11/16 20:45 (Cogentin Inj) 1 mg Q12H PRN IM 09/11/16 20:45 Miscellaneous Information 1 DAILY T-DERMAL 09/12/16 09:00 (Prinivil) 20 mg DAILY PO 09/12/16 11:00 09/22/16 09:14 (Benadryl) 50 mg HS PRN PO 09/12/16 11:00 09/16/16 21:00 (Tylenol) 650 mg Q4H PRN PO 09/12/16 11:00 09/21/16 12:44 (Milk Of Magnesia Liq) 30 ml DAILY PRN PO 09/12/16 11:00 (Mag-Al Plus Susp Liq) 30 ml Q6H PRN PO 09/12/16 11:00 (SEROquel) 25 mg BID PO 09/19/16 21:00 09/22/16 09:14 A/P Assessment and Plan DECOMPENSATED BIPOLAR URGENT HTN RI HYPERGLYCEMIA PLAN: LOWER THE LISINOPRIL. PSYCH MEDS PER PSYCHIATRY. WILL FOLLOW CLOSELY PT MEDICAL PROBLEMS. DISPO: HOPEFULLY BACK TO THE [facility]. Jj Jeong MD Sep 22, 2016 12:13
--- NOTE | 2016-09-22 15:31 | HHI.PYPN ---
Subjective Remarks Patient discussed with treatment team, along with medical student Yancy, chart reviewed, patient seen on unit. Patient showing compliance with medication. Is somewhat calmer coping with his hospitalization, denying suicidality homicidality voices or visions Review of Systems Except as stated in HPI: all other systems reviewed are Neg Objective Alert: Yes [place]: Person, Place, Date Mood: Calm Affect: Restricted Memory Intact: Comment (impaired) Hallucinations: Other Delusions: No Delusion Type: Other (none) Suicidal: Ideation (denies) Homicidal: Ideation (denies) Insight/Judgement Poor Vitals/IOs Vital Signs Date Time Temp Pulse Resp B/P Pulse Ox O2 Delivery O2 Flow Rate FiO2 09/22/16 05:12 97.2 60 18 140/83 98 Intake and Output 09/21/16 09/21/16 09/22/16 08:00 16:00 00:00 Intake Total 480 ml 1440 ml Balance 480 ml 1440 ml Assessment & Plan Problem List: (1) Bipolar I disorder, most recent episode manic, moderate ICD Code: F31.12 Assessment & Plan Estimated LOS: days patient somewhat less vigilant suspicious calmer more focused, compliant medications. Justification for Cont. Inpt. At this time patient will decompensate if placed in a lower level of care Discharge Planning To be determined Request HC Surrog/Guard Advoc?: No Deandre Lui MD Sep 22, 2016 15:31
[2016-09-22] MEDS: ACETAMINOPHEN 325 MG TAB PO PRN ×2 (15:55→21:03)
[2016-09-22 18:14] VITALS: BP 109/56; PULSE 63; RESP 18; TEMP 98.8; O2SAT 97
[2016-09-23 06:07] VITALS: BP 133/65; PULSE 57; RESP 18; TEMP 98.3; O2SAT 97
[2016-09-23] MEDS: LISINOPRIL 20 MG TAB PO SCH (08:47)
[2016-09-23] MEDS: NICOTINE 21 MG/24 HR PATCH T-DERMAL SCH (08:49)
[2016-09-23] MEDS: QUEtiapine FUMARATE 25 MG TAB PO SCH ×2 (08:49→20:38)
[2016-09-23] MEDS: REMOVE OLD PATCH T-DERMAL SCH (08:49)
--- NOTE | 2016-09-23 13:26 | HHI.PYPN ---
Subjective Remarks Patient seen on unit in his room with nurse Mayo and medical student Izabela, chart reviewed, compliant medications patient calm though wasn't some of undercurrent of vigilance. He denies suicidality homicidality voices or visions at this time. Review of Systems Except as stated in HPI: all other systems reviewed are Neg Objective Alert: Yes [place]: Person, Place, Date Mood: Calm Affect: Restricted Memory Intact: Comment (impaired) Hallucinations: Other Delusions: No Delusion Type: Other (none) Suicidal: Ideation (denies) Homicidal: Ideation (denies) Insight/Judgement Very poor Vitals/IOs Vital Signs Date Time Temp Pulse Resp B/P Pulse Ox O2 Delivery O2 Flow Rate FiO2 09/23/16 06:07 98.3 57 18 133/65 97 Intake and Output 09/22/16 09/22/16 09/23/16 08:00 16:00 00:00 Intake Total 1550 ml 360 ml Balance 1550 ml 360 ml Assessment & Plan Problem List: (1) Bipolar I disorder, most recent episode manic, moderate ICD Code: F31.12 Assessment & Plan Estimated LOS: days patient continue somewhat irritable and vigilant though the intensity and the paranoia have softened, compliant medications. Justification for Cont. Inpt. At this time the patient would significantly decompensate if placed in a lower level of care Discharge Planning To be determined Request HC Surrog/Guard Advoc?: No Deandre Lui MD Sep 23, 2016 13:26
[2016-09-23 19:27] VITALS: BP 114/61; PULSE 67; RESP 18; TEMP 98.1; O2SAT 97
[2016-09-24 05:40] VITALS: BP 107/54; PULSE 73; RESP 15; TEMP 97.8; O2SAT 97
[2016-09-24] MEDS: QUEtiapine FUMARATE 25 MG TAB PO SCH (08:18)
[2016-09-24] MEDS: ACETAMINOPHEN 325 MG TAB PO PRN (08:18)
[2016-09-24] MEDS: LISINOPRIL 20 MG TAB PO SCH (08:21)
[2016-09-24] MEDS: REMOVE OLD PATCH T-DERMAL SCH (08:21)
[2016-09-24] MEDS: NICOTINE 21 MG/24 HR PATCH T-DERMAL SCH (09:00)
[2016-09-24] MEDS ORDERED: LISI-515 PO (10:07)
[2016-09-24] MEDS ORDERED: LORA-392 PO (10:07)
[2016-09-24] MEDS ORDERED: QUET1TAB7 PO (10:07)
--- NOTE | 2016-09-24 10:24 | HHI.DS ---
Psychiatry Discharge Summary Inpatient Psychiatric care?: Yes Advance Directive: No Reason Not Provided: Due to Patient Condition Mental Health AdvanceDirective: No Health Care Proxy: Yes Admission Admission Date Sep 11, 2016 at 20:38 Admission Diagnosis: (1) Bipolar I disorder, most recent episode manic, moderate ICD Code: F31.12 Brief History Patient is a 80-year-old white male comes here under Domínguez act by the [place] [employer] dated 09/11/16 at 1251. stating Mr. Fields is currently living at [facility] in the independent living facility. He has not been taking his medications for the past couple of months. Mrs. Fields defecated on himself and refuses to shower. Mr. Fields was defecating in the shower and also the lunchroom area. Mrs. Madrigal is in a manic state according to staff member. Staff member believes that he is poor processing dodging Dr. Jeong appointments. Mr. Fields advised that he is not hospital and has been taking his medication. She Donnie son came to location after called by staff members and noted that his father was not in his right frame of mind and feeling that this type of behavior is because he is not probably taking his medication. Patient seen screened in the ED urine toxicology negative blood alcohol level negative, lithium level less than 0.1. Patient seen in his room with nurse Mayo present throughout session. Patient is a tall heavyset white male laying calmly in his bed. He is oriented to person place time and situation. He does acknowledge being bipolar. Does somewhat reluctantly acknowledge being somewhat "manic" he acknowledges prior manic states with elevated mood racing thoughts increased energy decreased need for sleep with poor behavior and impulsive behavior. At this time remains somewhat grandiose stating he continues to be employed for living and travels for living. He does deny alcohol or drugs related to this he denies any voices or visions with this of present entitlement grandiosity related to this. He does acknowledge prior hospitalization with this. Review of our EMR shows a hospitalization on through 09/20/14 visited [id number] with diagnosis psychosis, also visit through 10/23/14 diagnoses bipolar disorder [id number]. We did discuss medications it appears he has been on lithium in the past though none recently I've also talked with Dr. Jeong was his medical doctor at the facility states there is some concern with his family related to that medicine. The patient is and has 3 adult children 1 son who lives local. Denies any physical or sexual abuse states minimal alcohol abuse and denies other drug use. Also denies any mental health issues with his family of origin. States he has a bachelor's degree from [employer] and some advanced courses also. At this time the patient does meet criteria for involuntary psychiatric hospitalization on the Domínguez act I'll do first opinion requests second opinion. I feel the does have capacity to participate vagueness treatment. Will have as mentioned Dr. Jeong follow-up with him the started him on Seroquel 25 mg 3 times a day and and fight patient's son to the treatment team meeting on Thursday , 09/15/16 Tobacco Use In Past 30 Days: Cigars and/or Pipe Daily Alcohol Use: 4 or More Times Per Week Hospital Course Patient initially showed irritability intensity with some inappropriate sexually oriented remarks towards female staff. However he remained compliant with his medications stating he felt calmer more focused with this. There is also seen [place] retained with her son being guardian advocate. Patient behavior did improve with continue treatment with the Seroquel. Patient has been interviewed by [facility]. They've accepted him to the facility. At this time patient is Riches maximum benefit of this hospitalization, he has been compliant with medications, denying suicidality homicidality voices or visions, no significant behavioral issues. Thus will be discharged today to that facility with Rx 1 month follow through act Results Blood Pressure 107 / 54 Vital Signs Date Time Temp Pulse Resp B/P Pulse Ox O2 Delivery O2 Flow Rate FiO2 09/24/16 05:40 97.8 73 15 107/54 97 Urine toxicology negative bladder alcohol level negative Summary of Procedures None done Pending results at discharge: No Medications # of Antipsychotic meds at D/C: 1 Approp Antipsych med options 1 - Minimum of three failed multiple trials of monotherapy. 2 - Documented plan to taper to monotherapy due to previous use of multiple meds OR cross-taper in progress at D/C. 3 - Documentation of augmentation of Clozapine. 4 - Justification other than those listed in allowable values 1-3, document here : Discharge Discharge Date: Sep 24, 2016 Discharge Diagnosis: (1) Bipolar affective disorder, manic, in partial or remission Diagnosis: Principal ICD Code: F31.73 Mental Status Exam at Disch Alert fairly well oriented white male appears stated age he has normal active, mood is euthymic to slightly irritable, affect shows good range intensity. Speech rate and rhythm are within normal limits though no formal thought disorders, no auditory or visual hallucinations. No delusions. Insight and judgment is poor cognition grossly intact Pt Condition on Discharge: Stable Discharge Disposition: ACLF/ABIODUN Discharge Instructions Diet Instructions: As Tolerated, No Restrictions Activities you can perform: Regular-No Restrictions Scheduled Appointment: Zechariah Best Discharge Time <= 30 minutes Discharge/Advance Care Plan Health Problems: (1) Bipolar I disorder, most recent episode manic, moderate Goals to promote your health * To prevent worsening of your condition and complications * To maintain your health at the optimal level Directions to meet your goals Take your medications as prescribed Follow your dietary instruction Follow activity as directed Keep your appointments as scheduled Take your immunizations and boosters as scheduled If your symptoms worsen call your PCP, if no PCP go to Urgent Care Center or Emergency Room For 09/03 questions related to your inpatient stay or results of tests pending at discharge, please contact Dr. Deandre Lui at Smoking is Dangerous to Your Health. Avoid second hand smoking Deandre Lui MD Sep 24, 2016 10:24
--- NOTE | 2016-09-24 11:35 | HHI.FPPN ---
Subjective Remarks HYPOTENSIVE CALM BECOMES LABILE C/O WEAKNESS C/O BACK PAIN D/W RN Objective Vitals Vital Signs Date Time Temp Pulse Resp B/P Pulse Ox O2 Delivery O2 Flow Rate FiO2 09/24/16 05:40 97.8 73 15 107/54 97 09/23/16 19:27 98.1 67 18 114/61 97 I/O 09/23/16 09/23/16 09/23/16 09/24/16 09/24/16 09/24/16 07:00 15:00 23:00 07:00 15:00 23:00 Intake Total 480 ml 1920 ml 0 ml 480 ml Balance 480 ml 1920 ml 0 ml 480 ml Intake Oral 480 ml 1920 ml 0 ml 480 ml # Voids 1 4 2 Objective Remarks GENERAL: SKIN: Warm and dry. HEAD: Atraumatic. Normocephalic. EYES: Pupils equal and round. No scleral icterus. No injection or drainage. ENT: No nasal bleeding or discharge. Mucous membranes pink and moist. NECK: Trachea midline. No JVD. CARDIOVASCULAR: Regular rate and rhythm. RESPIRATORY: No accessory muscle use. Clear to auscultation. Breath sounds equal bilaterally. GASTROINTESTINAL: Abdomen soft, non-tender, nondistended. Hepatic and splenic margins not palpable. MUSCULOSKELETAL: Extremities without clubbing, cyanosis, or edema. No obvious deformities. NEUROLOGICAL: Awake and alert. No obvious cranial nerve deficits. Motor grossly within normal limits. Five out of 5 muscle strength in the arms and legs. Normal speech. PSYCHIATRIC: Appropriate mood and affect; insight and judgment normal. Medications and IVs Current Medications Medications (Trade) Dose Ordered Sig/Ivon Route Start Time Stop Time Status Last Admin (Ativan) 0.5 mg Q12H PRN PO 09/11/16 20:45 09/16/16 21:00 (Ativan Inj) 0.5 mg Q12H PRN IM 09/11/16 20:45 (Habitrol 21 Mg Patch.24 Hr) 1 patch DAILY T-DERMAL 09/12/16 09:00 (Cogentin) 1 mg Q12H PRN PO 09/11/16 20:45 (Cogentin Inj) 1 mg Q12H PRN IM 09/11/16 20:45 Miscellaneous Information 1 DAILY T-DERMAL 09/12/16 09:00 (Prinivil) 20 mg DAILY PO 09/12/16 11:00 09/23/16 08:47 (Benadryl) 50 mg HS PRN PO 09/12/16 11:00 09/16/16 21:00 (Tylenol) 650 mg Q4H PRN PO 09/12/16 11:00 09/24/16 08:18 (Milk Of Magnesia Liq) 30 ml DAILY PRN PO 09/12/16 11:00 (Mag-Al Plus Susp Liq) 30 ml Q6H PRN PO 09/12/16 11:00 (SEROquel) 25 mg BID PO 09/19/16 21:00 09/24/16 08:18 A/P Assessment and Plan DECOMPENSATED BIPOLAR URGENT HTN HYPOTENSIVE NOW WEAKNESS RI HYPERGLYCEMIA PLAN: CHECK TSH AND FT4 DC THE LISINOPRIL. PSYCH MEDS PER PSYCHIATRY. WILL FOLLOW CLOSELY PT MEDICAL PROBLEMS. DISPO: HOPEFULLY BACK TO THE [facility]. Jj Jeong MD Sep 24, 2016 11:35
== END 2016-09-24 11:55 | DRG 885 ==
LOC: NEDAMB 13:38 → NEDA 20:38 → H250 09-12 01:50
PROVIDERS: ADMIT Psychiatry & Neurology Psychiatry; ATTEND Psychiatry & Neurology Psychiatry
DX: F31.73 Bipolar disorder, in partial remission, most recent episode manic (principal); I95.9 Hypotension, unspecified; F03.90 Unspecified dementia, unspecified severity, without behavioral disturbance, psychotic disturbance, mood disturbance, and anxiety; Z91.14 Patient's other noncompliance with medication regimen; I16.0 Hypertensive urgency; I10 Essential (primary) hypertension; F17.290 Nicotine dependence, other tobacco product, uncomplicated; R73.9 Hyperglycemia, unspecified; R53.1 Weakness
CPT/HCPCS: 80048; 80053; 80061; 80178; 80307; 80320; 83036; 85025; 99285; Q0163

== ENCOUNTER 2017-04-14 15:22 | Inpatient (IN) | payer MEDICARE, OTHER ==
[~2017-04-14] VITALS: Ht 177.8 cm; Wt 91.0 kg
[~2017-04-14 15:22] MED LIST changes: -ENOX100P SQ; -LACT20SO4 PO; -LANSO30 NG; -LEVE500S TUBE; +LISI-515 PO; +LITH300C2 PO; +LORA-392 PO; +QUET1TAB7 PO; -RIFA550 PO; -WARF5 PO
--- NOTE | 2017-04-14 15:36 | PD ---
HPI Chief Complaint: ba Time Seen by Provider: 15:35 Travel History International Travel<30 days: No Contact w/Intl Traveler<30days: No Traveled to known affect area: No History of Present Illness HPI 81-year-old male presents to emergency department under Domínguez act from his place of residence for evaluation of aggressive behavior. Patient states that he does not believe he has been aggressive or noncompliant with any of the rules. He states he does get frustrated with the staff and their lack of urgency. He denies any suicidal homicidal ideations. States he is rather pleased with the management at his place of residence. Denies any acute medical needs. He has no other symptoms report. PFSH Past Medical History Autoimmune Disease: No Bipolar Disorder: Yes Anxiety: Yes Depression: No Cancer: No (per pt.) Cardiovascular Problems: No (per pt.) Diabetes: No (per pt.) Diminished Hearing: No Endocrine: No Genitourinary: No Headaches: Yes (per pt.) Immune Disorder: No Musculoskeletal: No Neurologic: No Psychiatric: Yes (BiPolar) Reproductive: No Respiratory: No Immunizations Current: Yes Seizures: No (per pt. ) Thyroid Disease: No Past Surgical History Abdominal Surgery: No Cardiac Surgery: No Ear Surgery: No Endocrine Surgery: No Eye Surgery: No Genitourinary Surgery: No Gynecologic Surgery: No Oral Surgery: No Thoracic Surgery: No Other Surgery: Yes (back sx for mrsa) Social History Alcohol Use: Yes (OCASSIONALLY) Tobacco Use: Yes Substance Use: No Allergies-Medications (Allergen,Severity, Reaction): Coded Allergies: *MDRO Multi-Drug Resistant Organism (Verified Allergy, Severe, 09/11/16) morphine (Unverified Allergy, Severe, Anaphylaxis, 03/31/17) Reported Meds & Prescriptions Reported Meds & Active Scripts Active Quetiapine (Quetiapine Fumarate) 25 Mg Tab 25 Mg PO BID Ativan (Lorazepam) 0.5 Mg Tab 0.5 Mg PO Q12H PRN Lisinopril 20 Mg Tab 20 Mg PO DAILY Reported Seroquel (Quetiapine Fumarate) 100 Mg Tab 100 Mg PO DAILY Review of Systems Except as stated in HPI: all other systems reviewed are Neg Physical Exam Narrative GENERAL: Well-nourished elderly male patient, ambulatory and in no acute distress SKIN: Focused skin assessment warm/dry. HEAD: Atraumatic. Normocephalic. EYES: Pupils equal and round. No scleral icterus. No injection or drainage. ENT: No nasal bleeding or discharge. Mucous membranes pink and moist. NECK: Trachea midline. No JVD. CARDIOVASCULAR: Regular rate and rhythm. No murmur appreciated. RESPIRATORY: No accessory muscle use. Clear to auscultation. Breath sounds equal bilaterally. GASTROINTESTINAL: Abdomen soft, non-tender, nondistended. Hepatic and splenic margins not palpable. MUSCULOSKELETAL: No obvious deformities. No clubbing. No cyanosis. No edema. NEUROLOGICAL: Awake and alert. No obvious cranial nerve deficits. Motor grossly within normal limits. Normal speech. PSYCHIATRIC: Appropriate mood and affect; insight and judgment normal. Data Data Last Documented VS Vital Signs Date Time Temp Pulse Resp B/P (MAP) Pulse Ox O2 Delivery O2 Flow Rate FiO2 04/14/17 18:13 78 18 127/78 (94) 97 Room Air 04/14/17 15:44 97.8 Orders Orders Complete Blood Count With Diff (04/14/17 15:35) Basic Metabolic Panel (Bmp) (04/14/17 15:35) Thyroid Stimulating Hormone (04/14/17 15:35) Urinalysis - C+S If Indicated (04/14/17 15:35) Electrocardiogram (04/14/17 15:35) Psych Screen (04/14/17 15:35) Drug Screen, Random Urine (04/14/17 15:35) Alcohol (Ethanol) (04/14/17 15:35) Diet Regular Basic (04/14/17 Dinner) Urine Culture (04/14/17 15:45) Ceftriaxone Inj (Rocephin Inj) (04/14/17 17:30) Lidocaine 1% Inj (50 Ml) (Xylocaine 1% I (04/14/17 17:30) Labs Laboratory Tests Test 04/14/17 15:45 White Blood Count 7.1 TH/MM3 Red Blood Count 4.69 MIL/MM3 Hemoglobin 13.6 GM/DL Hematocrit 41.7 % Mean Corpuscular Volume 88.9 FL Mean Corpuscular Hemoglobin 28.9 PG Mean Corpuscular Hemoglobin Concent 32.5 % Red Cell Distribution Width 13.8 % Platelet Count 242 TH/MM3 Mean Platelet Volume 7.7 FL Neutrophils (%) (Auto) 54.4 % Lymphocytes (%) (Auto) 30.5 % Monocytes (%) (Auto) 10.5 % Eosinophils (%) (Auto) 4.0 % Basophils (%) (Auto) 0.6 % Neutrophils # (Auto) 3.8 TH/MM3 Lymphocytes # (Auto) 2.2 TH/MM3 Monocytes # (Auto) 0.7 TH/MM3 Eosinophils # (Auto) 0.3 TH/MM3 Basophils # (Auto) 0.0 TH/MM3 CBC Comment DIFF FINAL Differential Comment Urine Color YELLOW Urine Turbidity CLEAR Urine pH 6.0 Urine Specific [place] 1.012 Urine Protein NEG mg/dL Urine Glucose (UA) NEG mg/dL Urine Ketones NEG mg/dL Urine Occult Blood NEG Urine Nitrite POS Urine Bilirubin NEG Urine Urobilinogen LESS THAN 2.0 MG/DL Urine Leukocyte Esterase LARGE Urine RBC LESS THAN 1 /hpf Urine WBC 23 /hpf Urine Bacteria FEW /hpf Microscopic Urinalysis Comment CULTURE INDICATED Blood Urea Nitrogen 33 MG/DL Creatinine 1.37 MG/DL Random Glucose 95 MG/DL Calcium Level 8.9 MG/DL Sodium Level 138 MEQ/L Potassium Level 4.6 MEQ/L Chloride Level 106 MEQ/L Carbon Dioxide Level 25.0 MEQ/L Anion Gap 7 MEQ/L Estimat Glomerular Filtration Rate 50 ML/MIN Thyroid Stimulating Hormone 3rd Gen 1.180 uIU/ML Urine Opiates Screen NEG Urine Barbiturates Screen NEG Urine Amphetamines Screen NEG Urine Benzodiazepines Screen NEG Urine Cocaine Screen NEG Urine Cannabinoids Screen NEG Ethyl Alcohol Level LESS THAN 3 MG/DL MDM Medical Decision Making Medical Screen Exam Complete: Yes Emergency Medical Condition: Yes Medical Record Reviewed: Yes Differential Diagnosis Mood disorder versus personality disorder versus adjustment reaction disorder versus dementia Narrative Course 81-year-old male presents to the emergency department for evaluation under a Domínguez act. Patient appears well and without distress. He does not recall any aggressive behavior at the halfway. He seems reasonable at this time. He is cooperative. CBC and BMP is without acute concern. Patient does have renal insufficiency. Urinalysis is positive for nitrate, large leukocyte esterase, 23 WBC, few bacteria. Patient was given IM Rocephin here. He'll be started on oral antibiotics. At this time he is medically cleared to undergo psychiatric screening for further evaluation and disposition. Mental health screening discussed with the patient. Psychiatric screen ordered. Diagnosis Primary Impression: History of bipolar disorder Additional Impression: UTI (urinary tract infection) Qualified Codes: N30.00 - Acute cystitis without hematuria Med/Other Pt SpecificInfo: Prescription(s) given Scripts Cephalexin (Keflex) 500 Mg Cap 500 MG PO Q12H for Infection for 7 Days, CAP 0 Refills Prov: Courtney Gomez 04/14/17 Condition: Stable Courtney Gomez Apr 14, 2017 15:36
[2017-04-14] MEDS ORDERED: SERO100T PO (15:41)
[2017-04-14 15:44] VITALS: BP 129/83; PULSE 82; RESP 18; TEMP 97.8; O2SAT 96
[2017-04-14 16:39] LABS: AUTOMATED NEUTROPHIL # 3.8 TH/MM3 (1.8-7.7); BASOPHIL % 0.6 % (0.0-2.0); EOSINOPHIL # 0.3 TH/MM3 (0-0.4); HEMATOCRIT 41.7 % (39.0-51.0); HEMO FLAGS DIFF FINAL; LYMPH % 30.5 % (9.0-44.0); LYMPHOCYTE # 2.2 TH/MM3 (1.0-4.8); MEAN CELL VOLUME 88.9 FL (80.0-100.0); MEAN CORPUSCULAR HEMOGLOBIN 28.9 PG (27.0-34.0); MEAN CORPUSCULAR HGB CONC 32.5 % (32.0-36.0); MONO % 10.5 % (0.0-8.0); NEUT % 54.4 % (16.0-70.0); PLATELET COUNT 242 TH/MM3 (150-450); RED BLOOD COUNT 4.69 MIL/MM3 (4.50-5.90); RED CELL DISTRIBUTION WIDTH 13.8 % (11.6-17.2); WHITE BLOOD COUNT 7.1 TH/MM3 (4.0-11.0)
[2017-04-14 16:45] LABS: BACTERIA, URINE FEW /hpf; BLOOD, URINE NEG (NEG); COMMENT (UR) CULTURE INDICATED; CULTURE IF INDICATED CULTURE INDICATED; GLUCOSE,URINE NEG (NEG); KETONE, URINE NEG (NEG); NITRITE,URINE POS (NEG); URINE COLOR YELLOW (YELLW/STRAW)
[2017-04-14 17:01] LABS: ANION GAP 7 MEQ/L (5-15); BLOOD UREA NITROGEN 33 MG/DL (7-18); CHLORIDE 106 MEQ/L (98-107); GLOMERULAR FILTRATION RATE 50 ML/MIN (>89); POTASSIUM 4.6 MEQ/L (3.5-5.1); SODIUM (NA) 138 MEQ/L (136-145)
[2017-04-14 17:04] LABS: ALCOHOL LESS THAN 3 MG/DL (0-5)
[2017-04-14] MEDS ORDERED: LIDOCAINE HCL 1% 50 ML VIAL XX ONE (17:30)
[2017-04-14 18:13] VITALS: BP 127/78; PULSE 78; RESP 18; O2SAT 97
[2017-04-14] MEDS ORDERED: CEPH-460 PO ×3 (18:37→22:48)
[2017-04-14] MEDS ORDERED: ACETAMINOPHEN 325 MG TAB PO PRN (22:15)
[2017-04-14] MEDS ORDERED: diphenhydrAMINE HCL 50 MG CAP PO PRN (22:15)
[2017-04-14] MEDS ORDERED: CEPHALEXIN MONOHYDRATE 500 MG CAP PO SCH (22:15)
[2017-04-14] MEDS ORDERED: diphenhydrAMINE HCL 50 MG/ML VIAL IM PRN (22:15)
[2017-04-14] MEDS ORDERED: LORazepam 2 MG/ML VIAL IM PRN (22:15)
[2017-04-14] MEDS ORDERED: ALUMINUM/MAGNESIUM/SIMETH 30 ML CUP PO PRN (22:15)
[2017-04-14] MEDS ORDERED: cloNIDine HCL 0.1 MG TAB PO PRN (22:15)
[2017-04-14] MEDS ORDERED: LORazepam 0.5 MG TAB PO PRN (22:15)
[2017-04-14] MEDS ORDERED: MAGNESIUM HYDROXIDE SUSP 30 ML CUP PO PRN (22:15)
[2017-04-14] MEDS: CEPHALEXIN MONOHYDRATE 500 MG CAP PO SCH (22:21)
[2017-04-14 23:00] VITALS: BP 164/82; PULSE 69; RESP 18; TEMP 97.6; O2SAT 97
[2017-04-15 06:07] VITALS: BP 160/89; PULSE 60; RESP 19; TEMP 97.5; O2SAT 95
[2017-04-15] MEDS: CEPHALEXIN MONOHYDRATE 500 MG CAP PO SCH ×2 (08:23→21:23)
[2017-04-15] MEDS: NICOTINE 21 MG/24 HR PATCH T-DERMAL SCH (08:24)
[2017-04-15] MEDS: REMOVE OLD PATCH T-DERMAL SCH (08:24)
[2017-04-15 10:27] LABS: ANION GAP 10 MEQ/L (5-15); BICARBONATE 25.2 MEQ/L (21.0-32.0); BLOOD UREA NITROGEN 31 MG/DL (7-18); CHLORIDE 108 MEQ/L (98-107); GLOMERULAR FILTRATION RATE 71 ML/MIN (>89); POTASSIUM 4.2 MEQ/L (3.5-5.1); SODIUM (NA) 143 MEQ/L (136-145)
[2017-04-15 10:30] LABS: HDL CHOLESTEROL 63.5 MG/DL (40.0-60.0); LDL CHOLESTEROL 83 MG/DL (0-99)
[2017-04-15] MEDS ORDERED: ACETAMINOPHEN 325 MG TAB PO PRN (10:45)
[2017-04-15] MEDS ORDERED: CEPHALEXIN MONOHYDRATE 500 MG CAP PO SCH (11:00)
[2017-04-15 11:01] LABS: HEMOGLOBIN A1a 0.9 %; HEMOGLOBIN A1b 1.7 %; HEMOGLOBIN Ao 85.7 %; HEMOGLOBIN P3 4.1 %
--- NOTE | 2017-04-15 11:06 | MB ---
cc: JJ YODER MD DATE OF CONSULTATION: 04/15/2017 CHIEF COMPLAINT Medical management. HISTORY OF PRESENT ILLNESS Malvin Sahu is a 81-year-old [facility]. He recently was living at [facility] and had increased behaviors and subsequently moved into [facility]. He recently had been somewhat stable, however, over the past month exhibited aggressive behavior. I have been called on numerous occasions with him threatening staff and approaching staff aggressively. He has become threatening to them to the point of where they would leave the room and exit quickly. He had thrown objects on some occasions. I recently increased his Seroquel and prescribed Ativan p.r.n. for agitation. Unfortunately, his symptoms have progressed and he was threatening the staff yesterday and the psychologist was at the facility yesterday and he signed the Dom[place]uez Act paperwork for his admission. The patient appears to be in his usual state of health. As usual he shakes my hand and will not let go and tries to squeeze my hand very hard. He is laughing and will not talk about the events. He has no acute complaints otherwise. PAST MEDICAL HISTORY 1. Bipolar. 2. Anxiety. 3. Headaches. PAST SURGICAL HISTORY Back surgery. SOCIAL HISTORY He quit smoking. Occasional beverage. No illicit drug usage. ALLERGIES MORPHINE. MEDICATIONS Home medications: 1. Seroquel 100 t.i.d. 2. Lorazepam q. 6 p.r.n. 3. Lisinopril 20 mg daily. REVIEW OF SYSTEMS Negative 14-point review of systems except as above. LABORATORY DATA CBC within normal limits. Creatinine 1.37. Urinalysis shows nitrite, leukocyte esterase, bacteria and WBCs. Urine drug screen is negative.. VITAL SIGNS: Temperature 97.5, pulse 60, respirations 19, blood pressure 160/89, pulse 95, respirations 18. PHYSICAL EXAMINATION GENERAL: He is an alert elder male. He is sitting up. He is able to walk. CHEST: Clear. No wheezes, rales, crackles or coughing. CARDIOVASCULAR: Regular rate and rhythm. No murmurs, rubs, clicks or gallops. ABDOMEN: Soft, nontender. No rebound or guarding. EXTREMITIES: 2+ edema to the mid tibias bilaterally. SKIN: He has some old skin tears on his legs and arms. NEURO: A&O x1. He will not commit to further questioning. Cranial nerves are grossly intact. Strength is 5/5 in upper and lower extremities. Sensation is intact in all dermatomes. ASSESSMENT Bipolar exacerbation. Psychosis. UTI. Acute kidney injury. Hypertension. Edema. PLAN Inpatient psychiatric admission. Regular diet. A1c. BMP in a.m. Monitor edema. Monitor hypertension. Keflex 500 mg p.o. q.12 hours for UTI. Followup urine cultures. Clonidine p.r.n., hypertension. Ativan p.r.n. agitation. Nicotine patch. Physical therapy evaluation. DISPOSITION Discharge back to [facility] assisted living facility or the patient may need placement to a psychiatric unit pending his response to current treatment. Thank you for the medical consultation. I will follow him closely. Jj Yoder MD RP/IRIS /10:27 AM /10:39 AM
--- NOTE | 2017-04-15 11:15 | HHI.HP ---
Provisional Diagnosis Admission Date Apr 14, 2017 at 22:08 [place]. Bipolar disorder most recent episode karri moderate f 31.12 Certification of Person's Competence To Provide Express and Informed Consent I have personally examined Malvin Sahu , a person being served at [facility] on, Apr 15, 2017 11:03. Express and informed consent means consent voluntarily given in writing, by a competent person, after sufficient explanation and disclosure of the subject matter involved to enable the person to make a knowing and willful decision without any element of force, fraud, deceit, duress, or other form of constraint or coercion. This person is 18 years of age or older, is not now known to be incompetent to consent to treatment with a guardian advocate, and does not have a health care surrogate or proxy currently making medical treatment decisions. I have found this person to be one of the following: [] Competent to provide express and informed consent, as defined above, for voluntary admission to this facility and is competent to provide express and informed consent for treatment. He/she has the consistent capacity to make well reasoned, willful, and knowing decisions concerning his or her medical or mental health treatment. The person fully and consistently understands the purpose of the admission for examination/placement and is fully capable of personally exercising all rights assured [place] [] Incompetent to provide express and informed consent to voluntary admission, and this is incompetent to provide express and informed consent to treatment. The person must be transferred to involuntary status and a petition for a guardian advocate filed with the Circuit Court. [xxx] Refusing to provide express and informed consent to voluntary admission but is competent to provide express and informed consent for treatment. The person must be discharged or transferred to involuntary status. Form shall be completed within 24 hours of a person's arrival at the receiving facility and filed in the clinical record of each person: 1. Admitted on a voluntary basis 2. Permitted to provide express and informed consent to his/her own treatment 3. Allowed to transfer from involuntary to voluntary status 4. Prior to permitting a person to consent to his or her own treatment after having been previously found incompetent to consent to treatment. History of Present Illness Capacity: Lacks Capacity (patient lacks capacity to sign for her hospitalization, patient has capacity to sign for medication) HPI Patient is a 81-year-old white male comes in under Domínguez act [facility] dated and 12:44 PM signed by Dean Viera PhD that document reviewed essentially stating unspecified dementia with behavioral disturbances bipolar disorder unspecified major depressive disorder recent incidents of violence against others. Denial of incidents. Minimization of aggressive behavior. Blaming others. Irritability. Low frustration tolerance. Paranoid ideation. It appears this behavior has worsened since discontinuation of his lithium. Of interest patient was hospitalized by me about one to 2 months ago for similar episode. At the present time patient sitting quietly in his Ashley chair in day room nurse Yovani present throughout session. Patient did recognize me from her prior contact. States is been compliant with his medication, does show some grandiosity stating he is being considered to be director of the [facility]. He states did have a run in with one of the staff members but minimizes it. He does make some vague flirtatious statements towards female staff. He does denies suicidality homicidality voices or visions. He is told the counselor that he drinks 1-2 beers every day. At the present time patient meets criteria for involuntary psychiatric hospitalization under the Domínguez act I'll do first opinion requests second opinion. They feel he has capacity sign for his medications. We'll continue the Seroquel at 25 mg twice a day and monitor for next 24-48 hours. Need to verify if he [facility] We'll have his head of it Dr. Jeong also monitor this patient Review of Systems Constitutional: DENIES: Diaphoretic episodes, Fatigue, Fever, Weight gain, Weight loss, Chills, Dizziness, Change in appetite, Night Sweats Endocrine: DENIES: Heat/cold intolerance, Polydipsia, Polyuria, Polyphagia Eyes: DENIES: Blurred vision, Diplopia, Eye inflammation, Eye pain, Vision loss , Photosensitivity, Double Vision Ears, nose, mouth, throat: DENIES: Tinnitus, Hearing loss, Vertigo, Nasal discharge, Oral lesions, Throat pain, Hoarseness, Ear Pain, Running Nose, Epistaxis, Sinus Pain, Toothache, Odynophagia Respiratory: DENIES: Apneas, Cough, Snoring, Wheezing, Hemoptysis, Sputum production, Shortness of breath Cardiovascular: DENIES: Chest pain, Palpitations, Syncope, Dyspnea on Exertion , PND, Lower Extremity Edema, Orthopnea, Claudication Gastrointestinal: DENIES: Abdominal pain, Black stools, Bloody stools, Constipation, Diarrhea, Nausea, Vomiting, Difficulty Swallowing, Anorexia Genitourinary: DENIES: Sexual dysfunction, Urinary frequency, Urinary incontinence, Urgency, Hematuria, Dysuria, Nocturia, Penile Discharge, Testicular Pain, Testicular Swelling Musculoskeletal: DENIES: Joint pain, Muscle aches, Stiffness, Joint Swelling, Back pain, Neck pain Integumentary: DENIES: Abnormal pigmentation, Nail changes, Pruritus, Rash Hematologic/lymphatic: DENIES: Bruising, Lymphadenopathy Immunologic/allergic: DENIES: Eczema, Urticaria Neurologic: DENIES: Abnormal gait, Headache, Localized weakness, Paresthesias, Seizures, Speech Problems, Tremor, Poor Balance Psychiatric: COMPLAINS OF: Mood changes, Agitation, Delusions (somewhat grandiose) Past Psych History Psychological trauma history Denies Violence risk - others (6 mos) Somewhat aggressive toward staff and other residents at [facility] Violence risk - self (6 mos) Low Past Family Social History Coded Allergies: *MDRO Multi-Drug Resistant Organism (Verified Allergy, Severe, 09/11/16) morphine (Unverified Allergy, Severe, Anaphylaxis, 03/31/17) Active Scripts Cephalexin (Keflex) 500 Mg Cap, 500 MG PO Q12H for Infection for 7 Days, CAP 0 Refills Prov:Alicia Sommers MD 04/14/17 Quetiapine (Quetiapine) 25 Mg Tab, 25 MG PO BID for health, #60 TAB 0 Refills Prov:Deandre Lui MD 09/24/16 Lorazepam (Ativan) 0.5 Mg Tab, 0.5 MG PO Q12H Y for MODERATE TO SEVERE ANXIETY, #30 TAB 0 Refills Prov:Deandre Lui MD 09/24/16 Lisinopril (Lisinopril) 20 Mg Tab, 20 MG PO DAILY for health, #30 TAB 0 Refills Prov:Deandre Lui MD 09/24/16 Reported Medications Quetiapine (Seroquel) 100 Mg Tab, 100 MG PO DAILY, #30 TAB 0 Refills 04/14/17 Discontinued Reported Medications [place] Carbonate (Glasco Carbonate) 300 Mg Cap, 300 MG PO DAILY, CAP 0 Refills 09/11/16 Discontinued Scripts Cephalexin (Keflex) 500 Mg Cap, 500 MG PO Q12H for Infection for 7 Days, CAP 0 Refills Prov:Courtney Gomez 04/14/17 Current Medications Medications (Trade) Dose Ordered Sig/Ivon Route Start Time Stop Time Status Last Admin (Ativan) 0.5 mg Q12H PRN PO 04/14/17 22:15 (Ativan Inj) 0.5 mg Q12H PRN IM 04/14/17 22:15 (Benadryl) 25 mg Q6H PRN PO 04/14/17 22:15 (Benadryl Inj) 25 mg Q6H PRN IM 04/14/17 22:15 (Tylenol) 650 mg Q4H PRN PO 04/14/17 22:15 (Milk Of Magnesia Liq) 30 ml DAILY PRN PO 04/14/17 22:15 (Mag-Al Plus Susp Liq) 30 ml Q6H PRN PO 04/14/17 22:15 (Habitrol 21 Mg Patch.24 Hr) 1 patch DAILY T-DERMAL 04/15/17 09:00 Miscellaneous Information 1 DAILY T-DERMAL 04/15/17 09:00 (Catapres) 0.1 mg Q8HR PRN PO 04/14/17 22:15 (Keflex) 500 mg Q12HR PO 04/14/17 22:15 04/15/17 08:23 (Tylenol) 650 mg Q4H PRN PO 04/15/17 10:45 UNV (Keflex) 500 mg Q12H PO 04/15/17 11:00 UNV (Prinivil) 20 mg DAILY PO 04/16/17 09:00 UNV (SEROquel) 25 mg BID PO 04/15/17 21:00 UNV Family History Unknown at this time Social History Patient lives in [facility] Patient's Strengths (min. 2) Patient verbal labile axis health care Physical Exam Patient seen screened in ED exam reveals agreed with. Patient sitting quietly in his Ashley chair in no acute distress, , No respiratory distress. No complaints of abdominal pain. Patient moving all 4 extremities without difficulty no abnormal motor movements noted Vital Signs Vital Signs Date Time Temp Pulse Resp B/P (MAP) Pulse Ox O2 Delivery O2 Flow Rate FiO2 04/15/17 06:07 97.5 60 19 160/89 (112) 95 04/14/17 18:13 Room Air I/O 04/15/17 04/15/17 04/16/17 08:00 16:00 00:00 Intake Total 240 ml Balance 240 ml Lab Results Test 04/14/17 15:45 04/15/17 07:21 White Blood Count 7.1 TH/MM3 Red Blood Count 4.69 MIL/MM3 Hemoglobin 13.6 GM/DL Hematocrit 41.7 % Mean Corpuscular Volume 88.9 FL Mean Corpuscular Hemoglobin 28.9 PG Mean Corpuscular Hemoglobin Concent 32.5 % Red Cell Distribution Width 13.8 % Platelet Count 242 TH/MM3 Mean Platelet Volume 7.7 FL Neutrophils (%) (Auto) 54.4 % Lymphocytes (%) (Auto) 30.5 % Monocytes (%) (Auto) 10.5 % Eosinophils (%) (Auto) 4.0 % Basophils (%) (Auto) 0.6 % Neutrophils # (Auto) 3.8 TH/MM3 Lymphocytes # (Auto) 2.2 TH/MM3 Monocytes # (Auto) 0.7 TH/MM3 Eosinophils # (Auto) 0.3 TH/MM3 Basophils # (Auto) 0.0 TH/MM3 CBC Comment DIFF FINAL Differential Comment Urine Color YELLOW Urine Turbidity CLEAR Urine pH 6.0 Urine Specific [place] 1.012 Urine Protein NEG mg/dL Urine Glucose (UA) NEG mg/dL Urine Ketones NEG mg/dL Urine Occult Blood NEG Urine Nitrite POS Urine Bilirubin NEG Urine Urobilinogen LESS THAN 2.0 MG/DL Urine Leukocyte Esterase LARGE Urine RBC LESS THAN 1 /hpf Urine WBC 23 /hpf Urine Bacteria FEW /hpf Microscopic Urinalysis Comment CULTURE INDICATED Blood Urea Nitrogen 33 MG/DL 31 MG/DL Creatinine 1.37 MG/DL 1.01 MG/DL Random Glucose 95 MG/DL 75 MG/DL Calcium Level 8.9 MG/DL 8.9 MG/DL Sodium Level 138 MEQ/L 143 MEQ/L Potassium Level 4.6 MEQ/L 4.2 MEQ/L Chloride Level 106 MEQ/L 108 MEQ/L Carbon Dioxide Level 25.0 MEQ/L 25.2 MEQ/L Anion Gap 7 MEQ/L 10 MEQ/L Estimat Glomerular Filtration Rate 50 ML/MIN 71 ML/MIN Thyroid Stimulating Hormone 3rd Gen 1.180 uIU/ML Urine Opiates Screen NEG Urine Barbiturates Screen NEG Urine Amphetamines Screen NEG Urine Benzodiazepines Screen NEG Urine Cocaine Screen NEG Urine Cannabinoids Screen NEG Ethyl Alcohol Level LESS THAN 3 MG/DL Triglycerides Level 61 MG/DL Cholesterol Level 159 MG/DL LDL Cholesterol 83 MG/DL HDL Cholesterol 63.5 MG/DL Cholesterol/HDL Ratio 2.50 RATIO Date/Time Source Procedure Growth Status 04/14/17 15:45 Urine Clean Catch Urine Culture Pending Received Mental Status Examination Alert fairly well oriented white male appears stated age is calm cooperative with fair eye contact Appearance Clean and neat Speech: Unremarkable Orientation: Person, Place, Time, Date Memory: Impaired (describe) (or) Thought Process: Loose Association Thought Content: Other (somewhat disorganized) Language Poor Fund of Knowledge Poor Hallucination Type: None (denies) Attention and Concentration: Other (poor) Suicidal Ideation: No (denies) Previous Suicide Attempts: No Homicidal Ideation: No (denies) Previous Homicide Attempts: No Insight: Poor Judgment: Poor Affect: Other (good range of motion intensity) Mood: Euthymic Motor Activity: Normal gait Assessment & Plan Problem List: (1) Bipolar I disorder, most recent episode manic, moderate ICD Codes: F31.12 - Bipolar disorder, current episode manic without psychotic features, moderate Status: Acute Assessment & Plan Estimated LOS: 5-7 days at the same patient meets criteria for involuntary psychiatric hospitalization under the Domínguez act. I'll do first opinion. Request second opinion. Will outpatient sign for medications. Continue medications per the med reconciliation. Above Dr. Jeong consult was also Discharge Planning To be determined Request HC Surrog/Guard Advoc?: Deandre Chen MD Apr 15, 2017 11:15
[2017-04-15 16:30] VITALS: BP 145/67; PULSE 61; RESP 18; TEMP 97.7; O2SAT 97
--- NOTE | 2017-04-15 17:00 | EKG ---
Date Performed: 04/14/2017 Time Performed: 15:56:37 PTAGE: 81 years EKG: Sinus rhythm Since previous tracing, no significant change noted NORMAL ECG PREVIOUS TRACING : 02/22/2016 11.17 DOCTOR: Raiza Carranza Interpretating Date/Time 04/15/2017 16:59:06
[2017-04-15] MEDS: QUEtiapine FUMARATE 25 MG TAB PO SCH (21:23)
[2017-04-16 05:24] VITALS: BP 139/62; PULSE 58; RESP 16; TEMP 97.9; O2SAT 98
--- NOTE | 2017-04-16 07:46 | PD.PSY.CON ---
Provisional Diagnosis Admission Date Apr 14, 2017 at 22:08 [place]. 1. Bipolar disorder, most recent episode manic, moderate Rule out contribution from delirium due to UTI [place]. Deferred History of Present Illness Service Psychiatry Consult Requested By Dr. Lui Reason for Consult Second opinion for involuntary psychiatric hospitalization Primary Care Physician Jj Jeong MD HPI From Dr. Lui's H&P: Patient is a 81-year-old white male comes in under Domínguez act [facility] dated and 12:44 PM signed by Dean Viera PhD that document reviewed essentially stating unspecified dementia with behavioral disturbances bipolar disorder unspecified major depressive disorder recent incidents of violence against others. Denial of incidents. Minimization of aggressive behavior. Blaming others. Irritability. Low frustration tolerance. Paranoid ideation. It appears this behavior has worsened since discontinuation of his lithium. Of interest patient was hospitalized by me about one to 2 months ago for similar episode. At the present time patient sitting quietly in his Ashley chair in day room nurse Yovani present throughout session. Patient did recognize me from her prior contact. States is been compliant with his medication, does show some grandiosity stating he is being considered to be director of the [facility]. He states did have a run in with one of the staff members but minimizes it. He does make some vague flirtatious statements towards female staff. He does denies suicidality homicidality voices or visions. He is told the counselor that he drinks 1-2 beers every day. At the present time patient meets criteria for involuntary psychiatric hospitalization under the Domínguez act I'll do first opinion requests second opinion. They feel he has capacity sign for his medications. We'll continue the Seroquel at 25 mg twice a day and monitor for next 24-48 hours. Need to verify if he may be [facility]. We'll have his music coordinator Dr. Jeong also monitor this patient On my examination today: Patient seen and examined. Chart reviewed. Case discussed with nursing staff. Described by nursing staff as mildly oppositional, guarded and irritable. On my examination today, the patient tells me that he was brought into the hospital because he was "at [facility] in someone complained and said something that upset them." He denies having any previous issues at this facility. Denies any suicidal or homicidal ideation. Mood described as pretty good. Sleep and appetite fair. Denies audiovisual hallucinations. No paranoia. Remainder of the psychiatric ROS negative. Past psychiatric history: The patient reports a history of bipolar disorder. He reports that he was most recently psychiatrically hospitalized several years ago in [facility]. He denies a history of suicide attempts. Family history: The patient denies any family history of mental illness. Chemical dependency history: The patient admits to the occasional beer. He denies any other substance use. Social history: Patient reports that his in 1987. He has 3 grown children. 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 He denies any history. Review of Systems ROS Limitations: Poor Historian Except as stated in HPI: all other systems reviewed are Neg Past Family Social History Coded Allergies: *MDRO Multi-Drug Resistant Organism (Verified Allergy, Severe, 09/11/16) morphine (Unverified Allergy, Severe, Anaphylaxis, 03/31/17) Past Medical History See electronic medical record Active Scripts Cephalexin (Keflex) 500 Mg Cap, 500 MG PO Q12H for Infection for 7 Days, CAP 0 Refills Prov:Alicia Sommers MD 04/14/17 Quetiapine (Quetiapine) 25 Mg Tab, 25 MG PO BID for health, #60 TAB 0 Refills Prov:Deandre Lui MD 09/24/16 Lorazepam (Ativan) 0.5 Mg Tab, 0.5 MG PO Q12H Y for MODERATE TO SEVERE ANXIETY, #30 TAB 0 Refills Prov:Deandre Lui MD 09/24/16 Lisinopril (Lisinopril) 20 Mg Tab, 20 MG PO DAILY for health, #30 TAB 0 Refills Prov:Deandre Lui MD 09/24/16 Reported Medications Quetiapine (Seroquel) 100 Mg Tab, 100 MG PO DAILY, #30 TAB 0 Refills 04/14/17 Discontinued Reported Medications [place] Carbonate ([place] Carbonate) 300 Mg Cap, 300 MG PO DAILY, CAP 0 Refills 09/11/16 Discontinued Scripts Cephalexin (Keflex) 500 Mg Cap, 500 MG PO Q12H for Infection for 7 Days, CAP 0 Refills Prov:Courtney Gomez 04/14/17 Current Medications Medications (Trade) Dose Ordered Sig/Ivon Route Start Time Stop Time Status Last Admin (Ativan) 0.5 mg Q12H PRN PO 04/14/17 22:15 (Ativan Inj) 0.5 mg Q12H PRN IM 04/14/17 22:15 (Benadryl) 25 mg Q6H PRN PO 04/14/17 22:15 (Benadryl Inj) 25 mg Q6H PRN IM 04/14/17 22:15 (Tylenol) 650 mg Q4H PRN PO 04/14/17 22:15 (Milk Of Magnesia Liq) 30 ml DAILY PRN PO 04/14/17 22:15 (Mag-Al Plus Susp Liq) 30 ml Q6H PRN PO 04/14/17 22:15 (Habitrol 21 Mg Patch.24 Hr) 1 patch DAILY T-DERMAL 04/15/17 09:00 Miscellaneous Information 1 DAILY T-DERMAL 04/15/17 09:00 (Catapres) 0.1 mg Q8HR PRN PO 04/14/17 22:15 (Keflex) 500 mg Q12HR PO 04/14/17 22:15 04/15/17 21:23 (Prinivil) 20 mg DAILY PO 04/16/17 09:00 (SEROquel) 25 mg BID PO 04/15/17 21:00 04/15/17 21:23 Patient's Strengths (min. 2) In a monitored setting. Verbally fluent. Physical Exam Physical exam completed by hospitalist contamination consultant. On my examination today, the patient appears to be in no acute physical distress. No motor abnormalities noted. Labs and vitals reviewed: Vital Signs Vital Signs Date Time Temp Pulse Resp B/P (MAP) Pulse Ox O2 Delivery O2 Flow Rate FiO2 04/16/17 05:24 97.9 58 16 139/62 (87) 98 04/14/17 18:13 Room Air Lab Results Laboratory Tests Test 04/14/17 15:45 04/15/17 07:21 White Blood Count 7.1 TH/MM3 Red Blood Count 4.69 MIL/MM3 Hemoglobin 13.6 GM/DL Hematocrit 41.7 % Mean Corpuscular Volume 88.9 FL Mean Corpuscular Hemoglobin 28.9 PG Mean Corpuscular Hemoglobin Concent 32.5 % Red Cell Distribution Width 13.8 % Platelet Count 242 TH/MM3 Mean Platelet Volume 7.7 FL Neutrophils (%) (Auto) 54.4 % Lymphocytes (%) (Auto) 30.5 % Monocytes (%) (Auto) 10.5 % Eosinophils (%) (Auto) 4.0 % Basophils (%) (Auto) 0.6 % Neutrophils # (Auto) 3.8 TH/MM3 Lymphocytes # (Auto) 2.2 TH/MM3 Monocytes # (Auto) 0.7 TH/MM3 Eosinophils # (Auto) 0.3 TH/MM3 Basophils # (Auto) 0.0 TH/MM3 CBC Comment DIFF FINAL Differential Comment Urine Color YELLOW Urine Turbidity CLEAR Urine pH 6.0 Urine Specific [place] 1.012 Urine Protein NEG mg/dL Urine Glucose (UA) NEG mg/dL Urine Ketones NEG mg/dL Urine Occult Blood NEG Urine Nitrite POS Urine Bilirubin NEG Urine Urobilinogen LESS THAN 2.0 MG/DL Urine Leukocyte Esterase LARGE Urine RBC LESS THAN 1 /hpf Urine WBC 23 /hpf Urine Bacteria FEW /hpf Microscopic Urinalysis Comment CULTURE INDICATED Thyroid Stimulating Hormone 3rd Gen 1.180 uIU/ML Urine Opiates Screen NEG Urine Barbiturates Screen NEG Urine Amphetamines Screen NEG Urine Benzodiazepines Screen NEG Urine Cocaine Screen NEG Urine Cannabinoids Screen NEG Ethyl Alcohol Level LESS THAN 3 MG/DL Blood Urea Nitrogen 31 MG/DL Creatinine 1.01 MG/DL Random Glucose 75 MG/DL Calcium Level 8.9 MG/DL Sodium Level 143 MEQ/L Potassium Level 4.2 MEQ/L Chloride Level 108 MEQ/L Carbon Dioxide Level 25.2 MEQ/L Anion Gap 10 MEQ/L Estimat Glomerular Filtration Rate 71 ML/MIN Hemoglobin A1c 5.3 % Triglycerides Level 61 MG/DL Cholesterol Level 159 MG/DL LDL Cholesterol 83 MG/DL HDL Cholesterol 63.5 MG/DL Cholesterol/HDL Ratio 2.50 RATIO I note urine culture is growing out gram-negative rods. Mental Status Examination Appearance Somewhat disheveled Speech: Unremarkable Orientation: Person, Place Memory: Impaired (describe) (mildly impaired on clinical exam) Thought Process: Circumstantial Thought Content: Other (somewhat disorganized) Hallucination Type: None Attention and Concentration: Other (poor) Suicidal Ideation: No Previous Suicide Attempts: No Homicidal Ideation: No Previous Homicide Attempts: No Insight: Poor Judgment: Poor Affect: Euthymic Mood: Euthymic Assessment & Plan Problem List: (1) Bipolar I disorder, most recent episode manic, moderate ICD Codes: F31.12 - Bipolar disorder, current episode manic without psychotic features, moderate Status: Acute Assessment & Plan Given the circumstances of the patient's presentation here and his presentation on the unit and on my examination, I concur with Dr. Lui that the patient meets criteria for involuntary psychiatric hospitalization under the Domínguez Act. I completed the second opinion paperwork. Further care as per Dr. Lui. Thank you very much for this consultation. Signing off. Neymar Ahumada MD Apr 16, 2017 07:46
[2017-04-16] MEDS: LISINOPRIL 20 MG TAB PO SCH (08:41)
[2017-04-16] MEDS: CEPHALEXIN MONOHYDRATE 500 MG CAP PO SCH ×2 (08:41→20:36)
[2017-04-16] MEDS: QUEtiapine FUMARATE 25 MG TAB PO SCH ×2 (08:41→20:36)
[2017-04-16] MEDS: REMOVE OLD PATCH T-DERMAL SCH (09:00)
[2017-04-16] MEDS: NICOTINE 21 MG/24 HR PATCH T-DERMAL SCH (09:00)
[2017-04-16 10:47] LABS: BICARBONATE 25.5 MEQ/L (21.0-32.0); POTASSIUM 4.5 MEQ/L (3.5-5.1)
--- NOTE | 2017-04-16 14:50 | HHI.PYPN ---
Subjective Remarks Patient seen on unit with nurse calderon. Chart reviewed. Patient compliant medications. Patient continues somewhat grandiose with minimization and little recollection of behaviors that led to this hospitalization. He continues also somewhat grandiose. For now continue treatment Review of Systems Except as stated in HPI: all other systems reviewed are Neg Objective Alert: Yes [place]: Place Mood: Anxious, Calm Affect: Euthymic, Labile Memory Intact: Comment (very poor) Hallucinations: Other (denies) Delusions: Yes Delusion Type: Grandiose Suicidal: Ideation (denies) Homicidal: Ideation (deny) Insight/Judgment Very poor Labs Test 04/16/17 10:05 Blood Urea Nitrogen 36 MG/DL Creatinine 1.02 MG/DL Random Glucose 80 MG/DL Calcium Level 9.2 MG/DL Sodium Level 140 MEQ/L Potassium Level 4.5 MEQ/L Chloride Level 108 MEQ/L Carbon Dioxide Level 25.5 MEQ/L Anion Gap 7 MEQ/L Estimat Glomerular Filtration Rate 70 ML/MIN Ammonia 35 MCMOL/L Date/Time Source Procedure Growth Status 04/14/17 15:45 Urine Clean Catch Urine Culture - Final Escherichia Coli Complete Vitals/IOs Vital Signs Date Time Temp Pulse Resp B/P (MAP) Pulse Ox O2 Delivery O2 Flow Rate FiO2 04/16/17 05:24 97.9 58 16 139/62 (87) 98 04/14/17 18:13 Room Air Intake and Output 04/16/17 04/16/17 04/17/17 08:00 16:00 00:00 Intake Total 720 ml Balance 720 ml Assessment & Plan Problem List: (1) Bipolar I disorder, most recent episode manic, moderate ICD Codes: F31.12 - Bipolar disorder, current episode manic without psychotic features, moderate Status: Acute Assessment & Plan Estimated LOS: days patient continues somewhat psychotic and grandiose, compliant medications. For now continue treatment Justification for Cont. Inpt. At this time patient will decompensate if placed in a lower level of care Discharge Planning To be determined Request HC Surrog/Guard Advoc?: Deandre Chen MD Apr 16, 2017 14:50
[2017-04-16] MEDS ORDERED: LACTULOSE SYRUP 20 GM/30 ML CUP PO ONE (16:15)
[2017-04-16 17:54] VITALS: BP 115/57; PULSE 52; RESP 16; TEMP 97.4; O2SAT 97
[2017-04-17 05:25] VITALS: BP 120/58; PULSE 53; RESP 18; TEMP 97.2; O2SAT 96
[2017-04-17] MEDS: CEPHALEXIN MONOHYDRATE 500 MG CAP PO SCH (08:29)
[2017-04-17] MEDS: QUEtiapine FUMARATE 25 MG TAB PO SCH ×2 (08:30→21:09)
[2017-04-17] MEDS: REMOVE OLD PATCH T-DERMAL SCH (09:00)
[2017-04-17] MEDS: NICOTINE 21 MG/24 HR PATCH T-DERMAL SCH (09:00)
[2017-04-17] MEDS: LISINOPRIL 20 MG TAB PO SCH (09:00)
--- NOTE | 2017-04-17 09:51 | HHI.FPPN ---
Subjective Remarks CALM STATES HE WANTS TO LEAVE D/W RN Objective Vitals Vital Signs Date Time Temp Pulse Resp B/P (MAP) Pulse Ox O2 Delivery O2 Flow Rate FiO2 04/17/17 05:25 97.2 53 18 120/58 (78) 96 04/16/17 17:54 97.4 52 16 115/57 (76) 97 I/O 04/16/17 04/16/17 04/16/17 04/17/17 04/17/17 04/17/17 06:59 14:59 22:59 06:59 14:59 22:59 Intake Total 720 ml 1350 ml 0 ml 1080 ml Balance 720 ml 1350 ml 0 ml 1080 ml Intake Oral 720 ml 630 ml 0 ml 1080 ml Oral Supplement 240 ml Tube Feeding 480 ml # Voids 2 1 2 Result Diagram: 04/14/17 1545 04/16/17 1005 Objective Remarks GENERAL: SKIN: Warm and dry. HEAD: Atraumatic. Normocephalic. EYES: Pupils equal and round. No scleral icterus. No injection or drainage. ENT: No nasal bleeding or discharge. Mucous membranes pink and moist. NECK: Trachea midline. No JVD. CARDIOVASCULAR: Regular rate and rhythm. RESPIRATORY: No accessory muscle use. Clear to auscultation. Breath sounds equal bilaterally. GASTROINTESTINAL: Abdomen soft, non-tender, nondistended. Hepatic and splenic margins not palpable. MUSCULOSKELETAL: two plus edema. No obvious deformities. NEUROLOGICAL: Awake and alert. No obvious cranial nerve deficits. Motor grossly within normal limits. Five out of 5 muscle strength in the arms and legs. Normal speech. PSYCHIATRIC: Appropriate mood and affect; insight and judgment normal. Medications and IVs Current Medications Medications (Trade) Dose Ordered Sig/Ivon Route Start Time Stop Time Status Last Admin (Ativan) 0.5 mg Q12H PRN PO 04/14/17 22:15 (Ativan Inj) 0.5 mg Q12H PRN IM 04/14/17 22:15 (Benadryl) 25 mg Q6H PRN PO 04/14/17 22:15 (Benadryl Inj) 25 mg Q6H PRN IM 04/14/17 22:15 (Tylenol) 650 mg Q4H PRN PO 04/14/17 22:15 (Milk Of Magnesia Liq) 30 ml DAILY PRN PO 04/14/17 22:15 (Mag-Al Plus Susp Liq) 30 ml Q6H PRN PO 04/14/17 22:15 (Habitrol 21 Mg Patch.24 Hr) 1 patch DAILY T-DERMAL 04/15/17 09:00 Miscellaneous Information 1 DAILY T-DERMAL 04/15/17 09:00 (Catapres) 0.1 mg Q8HR PRN PO 04/14/17 22:15 (Keflex) 500 mg Q12HR PO 04/14/17 22:15 04/17/17 08:29 (Prinivil) 20 mg DAILY PO 04/16/17 09:00 04/16/17 08:41 (SEROquel) 25 mg BID PO 04/15/17 21:00 04/17/17 08:30 A/P Assessment and Plan ASSESSMENT- Bipolar exacerbation. Psychosis. UTI. Acute kidney injury. Hypertension. Hyperammonemia. Edema. PLAN- For ThursdayApr 20 ordered ammonia level, cbc, CMP. Change to Augmentin for UTI until Apr 22. Inpatient psychiatric admission. Regular diet. Lactulose qd. Monitor edema. Monitor hypertension. Followup urine cultures. Clonidine p.r.n., hypertension. Ativan p.r.n. agitation. Nicotine patch. Physical therapy evaluation. DISPOSITION- Discharge back to [facility] or the patient may need placement to a psychiatric unit pending his response to current treatment. Jj Jeong MD Apr 17, 2017 09:51
--- NOTE | 2017-04-17 10:59 | HHI.PYPN ---
Subjective Remarks Patient seen in dayroom with nurse Marbella, chart review, patient compliant medications. Patient calm pleasantly confused no behavior problem. Though at times appears a little irritable when not discussing discharge plans with them. For now continue treatment Review of Systems Except as stated in HPI: all other systems reviewed are Neg Objective Alert: Yes [place]: Place Mood: Anxious, Calm Affect: Euthymic, Labile Memory Intact: Comment (very poor) Hallucinations: Other (denies) Delusions: Yes Delusion Type: Grandiose Suicidal: Ideation (denies) Homicidal: Ideation (deny) Insight/Judgment Very poor Labs Date/Time Source Procedure Growth Status 04/14/17 15:45 Urine Clean Catch Urine Culture - Final Escherichia Coli Complete Vitals/IOs Vital Signs Date Time Temp Pulse Resp B/P (MAP) Pulse Ox O2 Delivery O2 Flow Rate FiO2 04/17/17 05:25 97.2 53 18 120/58 (78) 96 04/14/17 18:13 Room Air Intake and Output 04/17/17 04/17/17 04/17/17 07:59 15:59 23:59 Intake Total 0 ml 1080 ml Balance 0 ml 1080 ml Assessment & Plan Problem List: (1) Bipolar I disorder, most recent episode manic, moderate ICD Codes: F31.12 - Bipolar disorder, current episode manic without psychotic features, moderate Status: Acute Assessment & Plan Estimated LOS: days patient continues somewhat confused also some underlying irritability and anger though he remains calm and overall cooperative Justification for Cont. Inpt. At this time patient will decompensate placed in a lower level of care Discharge Planning To be determined Deandre Lui MD Apr 17, 2017 10:59
[2017-04-17 17:11] VITALS: BP 126/61; PULSE 53; RESP 17; TEMP 97.4; O2SAT 96
[2017-04-17] MEDS: AMOXICILLIN/CLAVULANATE K 500 MG TAB PO SCH (21:09)
[2017-04-18 06:03] VITALS: BP 119/56; PULSE 58; RESP 15; TEMP 97.7; O2SAT 97
[2017-04-18 08:00] VITALS: BP 102/66; PULSE 68
[2017-04-18] MEDS: LISINOPRIL 20 MG TAB PO SCH (08:30)
[2017-04-18] MEDS: QUEtiapine FUMARATE 25 MG TAB PO SCH ×2 (08:30→20:55)
[2017-04-18] MEDS: AMOXICILLIN/CLAVULANATE K 500 MG TAB PO SCH ×2 (08:30→20:55)
[2017-04-18] MEDS: NICOTINE 21 MG/24 HR PATCH T-DERMAL SCH (08:31)
[2017-04-18] MEDS: REMOVE OLD PATCH T-DERMAL SCH (08:31)
--- NOTE | 2017-04-18 12:45 | HHI.PR ---
Subjective Remarks This is a pleasant 81 y/o male who resides at [facility]. with Bipolar disorder, Anxiety disorder, already recommended by his PCP Doctor Jean-Paul to discharge from his standpoint, I discussed with patient about his actual states he has no complaints. Objective Vital Signs Date Time Temp Pulse Resp B/P (MAP) Pulse Ox O2 Delivery O2 Flow Rate FiO2 04/18/17 08:00 68 102/66 (78) 04/18/17 06:03 97.7 58 15 119/56 (77) 97 04/17/17 17:11 97.4 53 17 126/61 (82) 96 I/O 04/17/17 04/17/17 04/17/17 04/18/17 04/18/17 04/18/17 07:00 15:00 23:00 07:00 15:00 23:00 Intake Total 0 ml 1800 ml 480 ml 240 ml Balance 0 ml 1800 ml 480 ml 240 ml Intake Oral 0 ml 1800 ml 480 ml 240 ml # Voids 2 1 2 Result Diagram: 04/14/17 1545 04/16/17 1005 Imaging No new imaging studies. Procedures None Other Results Laboratory Tests Test 04/14/17 15:45 04/15/17 07:21 04/16/17 10:05 White Blood Count 7.1 TH/MM3 Red Blood Count 4.69 MIL/MM3 Hemoglobin 13.6 GM/DL Hematocrit 41.7 % Mean Corpuscular Volume 88.9 FL Mean Corpuscular Hemoglobin 28.9 PG Mean Corpuscular Hemoglobin Concent 32.5 % Red Cell Distribution Width 13.8 % Platelet Count 242 TH/MM3 Mean Platelet Volume 7.7 FL Neutrophils (%) (Auto) 54.4 % Lymphocytes (%) (Auto) 30.5 % Monocytes (%) (Auto) 10.5 % Eosinophils (%) (Auto) 4.0 % Basophils (%) (Auto) 0.6 % Neutrophils # (Auto) 3.8 TH/MM3 Lymphocytes # (Auto) 2.2 TH/MM3 Monocytes # (Auto) 0.7 TH/MM3 Eosinophils # (Auto) 0.3 TH/MM3 Basophils # (Auto) 0.0 TH/MM3 CBC Comment DIFF FINAL Differential Comment Urine Color YELLOW Urine Turbidity CLEAR Urine pH 6.0 Urine Specific [place] 1.012 Urine Protein NEG mg/dL Urine Glucose (UA) NEG mg/dL Urine Ketones NEG mg/dL Urine Occult Blood NEG Urine Nitrite POS Urine Bilirubin NEG Urine Urobilinogen LESS THAN 2.0 MG/DL Urine Leukocyte Esterase LARGE Urine RBC LESS THAN 1 /hpf Urine WBC 23 /hpf Urine Bacteria FEW /hpf Microscopic Urinalysis Comment CULTURE INDICATED Thyroid Stimulating Hormone 3rd Gen 1.180 uIU/ML Urine Opiates Screen NEG Urine Barbiturates Screen NEG Urine Amphetamines Screen NEG Urine Benzodiazepines Screen NEG Urine Cocaine Screen NEG Urine Cannabinoids Screen NEG Ethyl Alcohol Level LESS THAN 3 MG/DL Hemoglobin A1c 5.3 % Triglycerides Level 61 MG/DL Cholesterol Level 159 MG/DL LDL Cholesterol 83 MG/DL HDL Cholesterol 63.5 MG/DL Cholesterol/HDL Ratio 2.50 RATIO Blood Urea Nitrogen 36 MG/DL Creatinine 1.02 MG/DL Random Glucose 80 MG/DL Calcium Level 9.2 MG/DL Sodium Level 140 MEQ/L Potassium Level 4.5 MEQ/L Chloride Level 108 MEQ/L Carbon Dioxide Level 25.5 MEQ/L Anion Gap 7 MEQ/L Estimat Glomerular Filtration Rate 70 ML/MIN Ammonia 35 MCMOL/L Objective Remarks GENERAL: Obesity, no acute distress. SKIN: Warm and dry. HEAD: Atraumatic. Normocephalic. EYES: Pupils equal and round. No scleral icterus. No injection or drainage. ENT: No nasal bleeding or discharge. Mucous membranes pink and moist. NECK: Trachea midline. No JVD. CARDIOVASCULAR: Regular rate and rhythm. RESPIRATORY: No accessory muscle use. Clear to auscultation. Breath sounds equal bilaterally. GASTROINTESTINAL: Abdomen soft, non-tender, nondistended. Hepatic and splenic margins not palpable. MUSCULOSKELETAL: Extremities without clubbing, cyanosis, or edema. No obvious deformities. NEUROLOGICAL: Awake and alert. No obvious cranial nerve deficits. PSYCHIATRIC: Appropriate mood and affect; insight and judgment normal. Medications and IVs Current Medications Medications (Trade) Dose Ordered Sig/Ivon Route Start Time Stop Time Status Last Admin (Ativan) 0.5 mg Q12H PRN PO 04/14/17 22:15 (Ativan Inj) 0.5 mg Q12H PRN IM 04/14/17 22:15 (Benadryl) 25 mg Q6H PRN PO 04/14/17 22:15 (Benadryl Inj) 25 mg Q6H PRN IM 04/14/17 22:15 (Tylenol) 650 mg Q4H PRN PO 04/14/17 22:15 (Milk Of Magnesia Liq) 30 ml DAILY PRN PO 04/14/17 22:15 (Mag-Al Plus Susp Liq) 30 ml Q6H PRN PO 04/14/17 22:15 (Habitrol 21 Mg Patch.24 Hr) 1 patch DAILY T-DERMAL 04/15/17 09:00 Miscellaneous Information 1 DAILY T-DERMAL 04/15/17 09:00 (Catapres) 0.1 mg Q8HR PRN PO 04/14/17 22:15 (Prinivil) 20 mg DAILY PO 04/16/17 09:00 04/16/17 08:41 (SEROquel) 25 mg BID PO 04/15/17 21:00 04/18/17 08:30 (Augmentin) 500 mg Q12HR PO 04/17/17 21:00 04/22/17 20:59 04/18/17 08:30 A/P Assessment and Plan 1. Bipolar exacerbation to continue management by Psychiatry specialist 2. Psychosis continue Psychiatry specialist management 3. UTI to continue Amoxicillin/Clavulanic acid to complete seven days and follow by PCP in two weeks for new Urinalysis and culture. asymptomatic at this time, this management started by his PCP doctor Jean-Paul. E Coli. sensitivity in chart. 4. Acute Kidney Injury Resolved. 5. Hypertension controlled. 6. Tobacco dependence continue Nicotine patch No further recommendations Follow up with his PCP Doctor Jj Jeong at discharge. Discharge Planning as per Attending Physician. Attending Attestation patient Jan Baldwin MD Apr 18, 2017 12:45
--- NOTE | 2017-04-18 13:22 | HHI.PYPN ---
Subjective Remarks Patient was seen and case discussed with nursing. Patient is alert and oriented 3. Pleasant and cooperative with exam. He has poor insight into this admission and previous admissions. His compliant with his medications and behaving well on the unit. No verbal or physical outbursts Objective Alert: Yes [place]: Person, Place, Date Mood: Calm Affect: Euthymic Memory Intact: Comment (very poor) Hallucinations: Other (denies) Delusions: Yes Delusion Type: Paranoid (vigilant) Suicidal: Ideation (denies) Homicidal: Ideation (deny) Insight/Judgment Poor Labs Date/Time Source Procedure Growth Status 04/14/17 15:45 Urine Clean Catch Urine Culture - Final Escherichia Coli Complete Vitals/IOs Vital Signs Date Time Temp Pulse Resp B/P (MAP) Pulse Ox O2 Delivery O2 Flow Rate FiO2 04/18/17 08:00 68 102/66 (78) 04/18/17 06:03 97.7 15 97 04/14/17 18:13 Room Air Intake and Output 04/18/17 04/18/17 04/19/17 08:00 16:00 00:00 Intake Total 240 ml Balance 240 ml Assessment & Plan Problem List: (1) Bipolar I disorder, most recent episode manic, moderate ICD Codes: F31.12 - Bipolar disorder, current episode manic without psychotic features, moderate Status: Acute Assessment & Plan Continue current treatment plan Justification for Cont. Inpt. Patient will decompensate in a less restrictive setting Ambrosio Hendrix DO Apr 18, 2017 13:22
[2017-04-19 00:12] VITALS: BP 154/82; PULSE 57; RESP 18; TEMP 97.9; O2SAT 98
[2017-04-19 05:33] VITALS: BP 180/73; PULSE 62; RESP 17; TEMP 97.5; O2SAT 98
[2017-04-19 06:45] VITALS: BP 134/75
[2017-04-19] MEDS: AMOXICILLIN/CLAVULANATE K 500 MG TAB PO SCH ×2 (08:35→21:08)
[2017-04-19] MEDS: LISINOPRIL 20 MG TAB PO SCH (08:35)
[2017-04-19] MEDS: QUEtiapine FUMARATE 25 MG TAB PO SCH ×2 (08:35→21:08)
[2017-04-19] MEDS: NICOTINE 21 MG/24 HR PATCH T-DERMAL SCH (08:36)
[2017-04-19] MEDS: REMOVE OLD PATCH T-DERMAL SCH (08:36)
--- NOTE | 2017-04-19 10:58 | HHI.PYPN ---
Subjective Remarks Patient was seen and case discussed with nursing. Patient remains pleasant and cooperative throughout his stay here. Eating and sleeping well per nursing. No physical or verbal outbursts. He is alert and oriented 3. Mood is "good." Patient denies suicidal or homicidal ideation intent or plan Objective Alert: Yes [place]: Person, Place, Date Mood: Calm Affect: Euthymic Memory Intact: Comment (very poor) Hallucinations: Other (denies) Delusions: Yes Delusion Type: Paranoid (none elicited) Suicidal: Ideation (denies) Homicidal: Ideation (deny) Insight/Judgment Fair Labs Date/Time Source Procedure Growth Status 04/14/17 15:45 Urine Clean Catch Urine Culture - Final Escherichia Coli Complete Vitals/IOs Vital Signs Date Time Temp Pulse Resp B/P (MAP) Pulse Ox O2 Delivery O2 Flow Rate FiO2 04/19/17 06:45 134/75 (94) 04/19/17 05:33 97.5 62 17 98 Intake and Output 04/19/17 04/19/17 04/20/17 08:00 16:00 00:00 Intake Total 600 ml Balance 600 ml Assessment & Plan Problem List: (1) Bipolar I disorder, most recent episode manic, moderate ICD Codes: F31.12 - Bipolar disorder, current episode manic without psychotic features, moderate Status: Acute Assessment & Plan Continue current treatment plan Justification for Cont. Inpt. Patient will decompensate in a less restrictive setting Ambrosio Hendrix DO Apr 19, 2017 10:58
[2017-04-20 05:18] VITALS: BP 114/57; PULSE 52; RESP 17; TEMP 97.5
[2017-04-20] MEDS: REMOVE OLD PATCH T-DERMAL SCH (09:00)
[2017-04-20] MEDS: LISINOPRIL 20 MG TAB PO SCH (09:00)
[2017-04-20] MEDS: NICOTINE 21 MG/24 HR PATCH T-DERMAL SCH (09:00)
[2017-04-20] MEDS: AMOXICILLIN/CLAVULANATE K 500 MG TAB PO SCH (09:24)
[2017-04-20] MEDS: QUEtiapine FUMARATE 25 MG TAB PO SCH (09:24)
[2017-04-20 10:32] LABS: BASOPHIL % 0.5 % (0.0-2.0); EOSINOPHIL # 0.3 TH/MM3 (0-0.4); HEMATOCRIT 44.3 % (39.0-51.0); HEMO FLAGS DIFF FINAL; LYMPHOCYTE # 2.3 TH/MM3 (1.0-4.8); MEAN CELL VOLUME 89.5 FL (80.0-100.0); MEAN CORPUSCULAR HEMOGLOBIN 29.9 PG (27.0-34.0); MEAN CORPUSCULAR HGB CONC 33.4 % (32.0-36.0); MONO % 8.2 % (0.0-8.0); NEUT % 60.3 % (16.0-70.0); PLATELET COUNT 228 TH/MM3 (150-450); RED BLOOD COUNT 4.95 MIL/MM3 (4.50-5.90); RED CELL DISTRIBUTION WIDTH 13.4 % (11.6-17.2); WHITE BLOOD COUNT 8.3 TH/MM3 (4.0-11.0)
[2017-04-20 11:01] LABS: ANION GAP 9 MEQ/L (5-15); AST (GOT) 19 U/L (15-37); BICARBONATE 23.4 MEQ/L (21.0-32.0); BLOOD UREA NITROGEN 40 MG/DL (7-18); CHLORIDE 107 MEQ/L (98-107); GLOMERULAR FILTRATION RATE 61 ML/MIN (>89); POTASSIUM 4.5 MEQ/L (3.5-5.1); SODIUM (NA) 139 MEQ/L (136-145)
[2017-04-20 11:02] LABS: ALT (GPT) 24 U/L (12-78)
[2017-04-20 11:04] LABS: ALKALINE PHOSPHATASE 76 U/L (45-117); TOTAL BILIRUBIN ADULT 0.5 MG/DL (0.2-1.0)
[2017-04-20] MEDS ORDERED: LISI-515 PO (11:44)
[2017-04-20] MEDS ORDERED: QUET1TAB7 PO (11:44)
[2017-04-20] MEDS ORDERED: AUGM500T7 PO (11:44)
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
== END 2017-04-20 13:35 | DRG 885 ==
LOC: NEPD 15:22 → NEDA 22:08 → H250 23:08
PROVIDERS: ADMIT Psychiatry & Neurology Psychiatry; ATTEND Psychiatry & Neurology Psychiatry
DX: F31.12 Bipolar disorder, current episode manic without psychotic features, moderate (principal); N17.9 Acute kidney failure, unspecified; E72.20 Disorder of urea cycle metabolism, unspecified; N30.00 Acute cystitis without hematuria; B96.20 Unspecified Escherichia coli [E. coli] as the cause of diseases classified elsewhere; F17.210 Nicotine dependence, cigarettes, uncomplicated; I10 Essential (primary) hypertension; R45.4 Irritability and anger; R60.9 Edema, unspecified
CPT/HCPCS: 80048; 80053; 80061; 80307; 81001; 82140; 83036; 84443; 85025; 87077; 87086; 87186; 93005; 96372; J0696